=== PATIENT | female | born 1945 | race Hispanic/Latino ===

== ENCOUNTER 2018-09-26 23:07 | Emergency (ER) | payer OTHER, MEDICARE ==
[~2018-09-26 23:07] MED LIST: BUDE10.2 IH; HYDR-2132 PO; ROSU10TA22 PO
[2018-09-26] MEDS ORDERED: DiphenhydrAMINE HCL 50 MG/ML VIAL ONE (23:36)
[2018-09-26] MEDS ORDERED: FAMOTIDINE/PF 20 MG/2 ML VIAL IV ONE (23:36)
[2018-09-26] MEDS ORDERED: DIPHENHYDRAMINE HCL 25 MG CAPSULE ONE (23:36)
[2018-09-26] MEDS ORDERED: METHYLPREDNISOLONE SOD SUCC 125MG/2ML VIAL ONE (23:36)
[2018-09-26] MEDS ORDERED: ALBUTEROL SULFATE 0.083% 2.5 MG/3 ML INH IH ONE (23:44)
[2018-09-27] MEDS ORDERED: PREDNISONE 20 MG TABLET ONE (00:24)
== END 2018-09-27 00:32 | disposition home or self-care (01) ==
LOC: EDH 23:07
DX: T78.40XA Allergy, unspecified, initial encounter (principal); L50.9 Urticaria, unspecified; E78.00 Pure hypercholesterolemia, unspecified; X58.XXXA Exposure to other specified factors, initial encounter
CPT/HCPCS: 94640; 96374; 96375; 99284; J1200; J2930; J3490; Q0163

== ENCOUNTER 2018-09-27 11:15 | Observation (INO) | payer OTHER, MEDICARE ==
[~2018-09-27] VITALS: Ht 160 cm; Wt 63.0 kg
[2018-09-27] MEDS ORDERED: FAMOTIDINE/PF 20 MG/2 ML VIAL IV ONE ×2 (11:47→16:33)
[2018-09-27 11:51] LABS: BASOPHILS % (AUTO) 0.1 % (0.0-5.0); HEMATOCRIT 37.9 % (36-48); LYMPHOCYTES % (AUTO) 7.5 % (21.0-51.0); MEAN CORPUSCULAR HEMOGLOBIN 30.3 pg (27.0-33.0); MEAN CORPUSCULAR HGB CONC 33.9 g/dL (32.0-36.0); MEAN CORPUSCULAR VOLUME 89.5 fL (79-99); MONOCYTES % (AUTO) 0.7 % (3.0-13.0); NEUTROPHILS % (AUTO) 91.7 % (40.0-77.0); PLATELET COUNT (AUTO) 209 K/uL (130-400); RED BLOOD CELL COUNT(AUTO) 4.24 MIL/uL (4.00-5.50); RED CELL DISTRIBUTION WIDTH 13.9 % (11.0-15.5); WHITE BLOOD COUNT (AUTO) 6.8 K/uL (4.8-10.8)
[2018-09-27 12:04] LABS: CREATININE 0.7 mg/dL (0.5-1.5); POTASSIUM 3.6 mmol/L (3.5-5.1)
[2018-09-27 12:05] LABS: INR 0.93 (0.85-1.15); PARTIAL THROMBOPLASTIN TIME 27.1 SEC (26.3-35.5); PROTHROMBIN TIME 9.8 SEC (9.6-11.6)
[2018-09-27 12:13] LABS: ALBUMIN 3.8 g/dL (3.5-5.0); BILIRUBIN,TOTAL 0.4 mg/dL (0.2-1.0); TOTAL PROTEIN, SERUM 7.2 g/dL (6.0-8.3)
[2018-09-27 12:38] LABS: B-TYPE NATRIURETIC PEPTIDE 42 pg/mL (0-100)
[2018-09-27 14:04] LABS: APPEARANCE,URINE Clear (CLEAR); BILIRUBIN,URINE Negative (NEGATIVE); COLOR,URINE Yellow (YELLOW); GLUCOSE, URINE (UA) Negative (NEGATIVE); KETONES,URINE Negative (NEGATIVE); LEUKOCYTE ESTERASE ,URINE Negative (NEGATIVE); NITRATE,URINE Negative (NEGATIVE); OCCULT BLOOD,URINE Negative (NEGATIVE); PROTEIN,URINE Negative (NEGATIVE); UROBILINOGEN,URINE 0.2 mg/dL (0.2-1.0)
[2018-09-27] MEDS ORDERED: NITROGLYCERIN 0.4 MG SL TAB SL ONE (16:25)
[2018-09-27] MEDS ORDERED: LIDOCAINE HCL 2% VISCOUS 15 ML UDCUP ONE (16:33)
[2018-09-27] MEDS ORDERED: MAGNESIUM HYDROXIDE 30 ML/UDCUP ONE (16:34)
[2018-09-27] MEDS ORDERED: ENOXAPARIN SODIUM 60 MG/0.6 ML SQ ONE (16:44)
[2018-09-27] MEDS: METOPROLOL TARTRATE 25 MG TAB PO SCH ×2 (17:00→21:45)
[2018-09-27] MEDS ORDERED: METHYLPREDNISOLONE SOD SUCC 125MG/2ML VIAL ONE (17:13)
[2018-09-27] MEDS ORDERED: NITROGLYCERIN 1GM/1 INCH PACKET TD ONE (17:13)
[2018-09-27] MEDS ORDERED: METOPROLOL TARTRATE 25 MG TAB ONE (17:17)
[2018-09-27] MEDS ORDERED: IPRATROPIUM/ALBUTEROL SULFATE 3 ML SOLUTION IH ONE (17:22)
[2018-09-27] MEDS ORDERED: NITROGLYCERIN 0.4 MG SL TAB SL PRN (19:45)
[2018-09-27] MEDS ORDERED: ONDANSETRON HCL 4 MG/2 ML VIAL IVP PRN (19:45)
[2018-09-27] MEDS ORDERED: ACETAMINOPHEN 325 MG TAB PO PRN (19:45)
[2018-09-27] MEDS ORDERED: MORPHINE SULFATE 2 MG/ML 1ML SYG IVP PRN (19:45)
[2018-09-27 20:12] LABS: CREATINE KINASE, TOTAL 67 U/L (21-232); MYOGLOBIN 30 ng/mL (10-92); TROPONIN I < 0.04 ng/mL (0.00-0.06)
[2018-09-27 20:18] VITALS: BP 126/70
[2018-09-27 22:27] LABS: CREATINE KINASE, TOTAL 63 U/L (21-232); MYOGLOBIN 35 ng/mL (10-92); TROPONIN I < 0.04 ng/mL (0.00-0.06)
[2018-09-27] MEDS ORDERED: DIPHENHYDRAMINE HCL 25 MG CAPSULE PO PRN ×2 (22:30)
[2018-09-27] MEDS ORDERED: DIPHENHYDRAMINE HCL 25 MG CAPSULE ONE (22:33)
[2018-09-27 23:52] VITALS: BP 117/51
[2018-09-28 01:41] LABS: CREATINE KINASE, TOTAL 60 U/L (21-232); MYOGLOBIN 42 ng/mL (10-92); TROPONIN I < 0.04 ng/mL (0.00-0.06)
[2018-09-28 04:05] VITALS: BP 112/53
--- NOTE | 2018-09-28 05:20 | NUR ---
PROGRESS NOTE PT C/O ITCH WITH HIVES, SKIN FLUSHED AND RED, CNC MANUFACTURING ENGINEER STELLA CONTACTED, ORDER FOR BENADRYL 50MG PO STAT AND 25MG PO PRN Q6H FOR ITCHING, PT GIVEN THE STAT 50MG PO BENADRYL, ITCHING CALM, PT ABLE TO SLEEP THROUGHOUT THE NIGHT, PT CALL AT 0515 AND STATED ITCHING, UPON ASSESSMENT, PT NOTED WITH HIVES, SKIN FLUSHED AND RED FROM THE TRUNK OF UPPER BODY TO B/L THIGH, NO SOB, SWOLLEN TONGUE NOTED, OR ACUTE DISTRESS NOTED, PT ON O2 2L, CNC MANUFACTURING ENGINEER SEISMOGRAPH OBSERVER CALLED AND NOTIFIED FOR FURTHER ORDERS, CNC MANUFACTURING ENGINEER STATED PT WAS ALREADY GIVEN 125MG OF SOLU-MEDROL AND SHOULD GO AHEAD TO INCREASE THE 25MG PRN Q6H TO 50MG PO PRN Q6H FOR ITCHING. ORDER CARRIED OUT. NURSING WILL CONTINUE TO MONITOR PT.
[2018-09-28 06:33] LABS: HEMATOCRIT 37.4 % (36-48); MEAN CORPUSCULAR HEMOGLOBIN 29.7 pg (27.0-33.0); MEAN CORPUSCULAR HGB CONC 33.2 g/dL (32.0-36.0); MEAN CORPUSCULAR VOLUME 89.4 fL (79-99); PLATELET COUNT (AUTO) 217 K/uL (130-400); RED BLOOD CELL COUNT(AUTO) 4.18 MIL/uL (4.00-5.50); RED CELL DISTRIBUTION WIDTH 14.2 % (11.0-15.5); WHITE BLOOD COUNT (AUTO) 12.9 K/uL (4.8-10.8)
[2018-09-28 06:42] LABS: CREATININE 0.6 mg/dL (0.5-1.5); POTASSIUM 3.8 mmol/L (3.5-5.1)
[2018-09-28 07:30] VITALS: BP 127/73
[2018-09-28] MEDS: METOPROLOL TARTRATE 25 MG TAB PO SCH ×2 (09:37→21:19)
[2018-09-28] MEDS: ASPIRIN 325 MG TABLET PO SCH (09:37)
[2018-09-28] MEDS ORDERED: DIPHENHYDRAMINE HCL 25 MG CAPSULE PO PRN (10:30)
--- NOTE | 2018-09-28 10:41 | NUR ---
PARAG Rosen met with pt and daughter Dayana Prieto [phone]. Pt states she is to [place] [phone] but he lives in [place] and visits often. Pt states she is independent of AL[facility], but has provider 2hrs a day thru [facility] for home management. Pt has no DME or in home care services. PCP is Hernán Armstrong and uses [facility]. DEnies dc needs, plan is home. CM to follow and assist as needed Addendum: 09/28/18 at 1049 by GABRIEL MEDRANO Amended: Links added.
[2018-09-28 11:00] VITALS: BP 127/71
[2018-09-28] MEDS ORDERED: METHYLPREDNISOLONE SOD SUCC 125MG/2ML VIAL IVP SCH (14:00)
[2018-09-28] MEDS: FAMOTIDINE/PF 20 MG/2 ML VIAL IV SCH (14:21)
[2018-09-28 16:00] VITALS: BP 114/66
[2018-09-28] MEDS: METHYLPREDNISOLONE SOD SUCC 40MG/ML 1ML IVP SCH (17:11)
[2018-09-28 19:00] VITALS: BP 126/68
[2018-09-28] MEDS: FAMOTIDINE 20MG TAB 20 MG TAB PO SCH (21:19)
[2018-09-29] VITALS: BP 90/42
[2018-09-29] MEDS: METHYLPREDNISOLONE SOD SUCC 40MG/ML 1ML IVP SCH ×2 (01:46→08:29)
[2018-09-29] MEDS ORDERED: SODIUM CHLORIDE 0.9% 1000ML 1,000 ML IV SCH (03:00)
[2018-09-29 04:00] VITALS: BP 124/68
[2018-09-29] MEDS ORDERED: GLUCAGON 1MG KIT 1 MG ML IM PRN (04:00)
[2018-09-29] MEDS ORDERED: DEXTROSE 50%-WATER 50 ML DISP.SYRIN IV PRN (04:00)
[2018-09-29] MEDS ORDERED: BUDESONIDE 0.5 MG/2 ML INH IH SCH (06:00)
[2018-09-29] MEDS: IPRATROPIUM/ALBUTEROL SULFATE 3 ML SOLUTION IH SCH ×2 (06:24→11:15)
[2018-09-29] MEDS: INSULIN HUMULIN R 100 UNIT/ML 3ML SQ SCH ×2 (06:28→11:30)
[2018-09-29 07:00] VITALS: BP 146/73
[2018-09-29] MEDS: ASPIRIN 325 MG TABLET PO SCH (08:30)
[2018-09-29] MEDS: METOPROLOL TARTRATE 25 MG TAB PO SCH (08:30)
[2018-09-29] MEDS: FAMOTIDINE 20MG TAB 20 MG TAB PO SCH (08:30)
[2018-09-29 11:00] VITALS: BP 122/64
[2018-09-29] MEDS: FAMOTIDINE/PF 20 MG/2 ML VIAL IV SCH (13:00)
[2018-09-29 16:00] VITALS: BP 120/66
--- NOTE | 2018-09-29 18:20 | NUR ---
DISCHARGE PATIENT GIVEN DISCHARGE INSTRUCTIONS VIA TEACH BACK. 20G PIV TO LEFT HAND DISCONTINUED, TIP INTACT. RX GIVEN BY DR. SUTTON FOR PREDNISONE, BENADRYL AND PEPCID. PATIENT TO FOLLOW UP WITH PCP, DR. GUERITA ARTEAGA AND DR. HIRSCH. PATIENT STABLE AT THIS TIME. PATIENT WHEELED DOWNSTAIRS ACCOMPANIED BY BARBRA GASTELUM AND PATIENT'S DAUGHTER.
== END 2018-09-29 18:25 | disposition home or self-care (01) ==
LOC: EDH 11:15 → EDHIP 17:16 → 3AH 20:21
PROVIDERS: ADMIT Internal Medicine; ATTEND Internal Medicine
DX: R07.89 Other chest pain (principal); E78.5 Hyperlipidemia, unspecified; J45.909 Unspecified asthma, uncomplicated; L50.9 Urticaria, unspecified; Z79.51 Long term (current) use of inhaled steroids; Z87.891 Personal history of nicotine dependence; Z79.899 Other long term (current) drug therapy
CPT/HCPCS: 36415 ×2; 71045 ×2; 80048; 80053; 81003; 82550 ×4; 82948; 83874 ×4; 83880; 84484 ×4; 85025; 85027; 85610; 85730; 93005 ×2; 94640 ×4; 94664; 96374; 96375; 96376 ×2; 99291; G0378 ×48; J1650; J2920 ×3; J2930 ×2; J3490 ×2; Q0163 ×3

== ENCOUNTER → 2018-11-17 | Outpatient (CLI) | payer OTHER, MEDICARE ==
[~2018-11-17] VITALS: Ht 162.6 cm; Wt 62.1 kg
[~2018-11-17] MED LIST changes: -HYDR-2132 PO; +REGADENOSON 0.4 MG/5 ML PF SYG IVP SCH
== END | disposition home or self-care (01) ==
LOC: SHCH 08:33
PROVIDERS: ATTEND Internal Medicine Cardiovascular Disease
DX: R07.9 Chest pain, unspecified (principal); R06.00 Dyspnea, unspecified
CPT/HCPCS: 78452; 93017; 96374; A9500 ×2; J2785

== ENCOUNTER 2019-03-30 05:59 | Day surgery (SDC) | payer OTHER, MEDICARE ==
[~2019-03-30] VITALS: Ht 162.6 cm; Wt 59.9 kg
[~2019-03-30 05:59] MED LIST changes: -REGADENOSON 0.4 MG/5 ML PF SYG IVP SCH
[2019-03-30] MEDS ORDERED: SODIUM CHLORIDE 0.9% 1000ML 1,000 ML IV ONE (06:24)
[2019-03-30 06:35] VITALS: BP 163/76
[2019-03-30] MEDS ORDERED: IPRATROPIUM/ALBUTEROL SULFATE 3 ML SOLUTION IH ONE (06:43)
[2019-03-30] MEDS ORDERED: ELLIPTA IH (06:49)
[2019-03-30] MEDS ORDERED: THEO400T3 PO (06:49)
[2019-03-30] MEDS ORDERED: ALBUTEROL (06:49)
[2019-03-30] MEDS ORDERED: PROPOFOL 10 MG/ML 20ML VIAL IV ONE (07:00)
[2019-03-30] MEDS ORDERED: LIDOCAINE HCL-MPF 2% 5ML VIAL ONE (07:01)
[2019-03-30 07:35] VITALS: BP 110/58
[2019-03-30 07:40] VITALS: BP 124/62
[2019-03-30 07:45] VITALS: BP 128/66
[2019-03-30 07:50] VITALS: BP 132/66
--- NOTE | 2019-03-30 08:00 | NUR ---
dc ptdc home via wc,no distress noted. pt denied any pain or discomforts. pt accompanied by daughter.
== END 2019-03-30 08:00 | disposition home or self-care (01) ==
LOC: ENDO 05:59 → DAH 05:59 → ENDO 08:00
PROVIDERS: ATTEND Internal Medicine
DX: Z09 Encounter for follow-up examination after completed treatment for conditions other than malignant neoplasm (principal); D12.3 Benign neoplasm of transverse colon; K57.30 Diverticulosis of large intestine without perforation or abscess without bleeding; Z86.010 Personal history of colon polyps; J43.9 Emphysema, unspecified; E78.5 Hyperlipidemia, unspecified; Z79.899 Other long term (current) drug therapy; Z98.890 Other specified postprocedural states; Z81.0 Family history of intellectual disabilities
CPT/HCPCS: 45380; 88305; 94640; A4215; A4221; A4222; A4223; A4606; A4620; A4663; J2704; J3490; J7030

== ENCOUNTER 2023-05-22 20:53 | Emergency (ER) | payer OTHER, MEDICARE ==
[~2023-05-22] VITALS: Ht 162.6 cm; Wt 59.4 kg
[~2023-05-22 20:53] MED LIST changes: +ALBU8.5H8 IH; +ALBUTEROL; -BUDE10.2 IH; +ELLIPTA IH; +LISI10TA24 PO; +MECL-160 PO; +NAPR-1192 PO; +THEO400T3 PO
[2023-05-22 22:41] VITALS: BP 153/83; PULSE 87; RESP 19; O2SAT 100
== END 2023-05-22 23:05 | disposition home or self-care (01) ==
LOC: EDH 20:53
DX: S00.81XA Abrasion of other part of head, initial encounter (principal); S80.211A Abrasion, right knee, initial encounter; S80.212A Abrasion, left knee, initial encounter; S60.511A Abrasion of right hand, initial encounter; S60.512A Abrasion of left hand, initial encounter; E78.00 Pure hypercholesterolemia, unspecified; J44.9 Chronic obstructive pulmonary disease, unspecified; Z79.899 Other long term (current) drug therapy; Z98.890 Other specified postprocedural states; Z88.8 Allergy status to other drugs, medicaments and biological substances; W18.39XA Other fall on same level, initial encounter; Y93.89 Activity, other specified; Y92.89 Other specified places as the place of occurrence of the external cause; Y99.8 Other external cause status
CPT/HCPCS: 70450; 72125

== ENCOUNTER 2024-01-27 21:35 | Emergency (ER) | payer OTHER, MEDICARE ==
[~2024-01-27] VITALS: Ht 162.6 cm; Wt 59.0 kg
[~2024-01-27 21:35] MED LIST changes: +ALEN70TA80 PO; +BENZ-226 PO; +FAMO20TA8 PO; +FLUT1BLS3 IH; +LEVO750T68 PO; -MECL-160 PO; +MECL-302 PO; +MULT-1203 PO; +PRED20TA3 PO
--- NOTE | 2024-01-27 22:02 | ERN ---
ED Note History of Present Illness Stated Complaint: PELVIC PAIN X 2 HOURS Chief Complaint: Pelvic Pain Time Seen by MD: 21:36 Dictation: This is a 78-year-old elderly female who came into the emergency room with complaints of severe epigastric pain and pain in the mons pubis and vulval area. This started 2 hours ago and it was intense and hence she came into the ER. Denied any burning micturition frequency or blood in the urine. No history of any nausea vomitings diarrhea she seemed to uncomfortable even during my evaluation Temperature 98.4 pulse 89 respirations 19 blood pressure 182/84 pulse oximetry 96% on room air Her chronic medical problems include COPD asthma hypertension Allergies: Coded Allergies: No Known Allergies (Unverified Allergy, Unknown, 06/13/23) Home Meds Active Scripts Oxycodone HCl/Acetaminophen (Percocet 5-325 mg Tablet) 5 Mg-325 Mg Tablet, 1 E ACH PO Q6H for pain, #10 TAB 0 Refills Prov:JACE CHIU MD 01/28/24 Levofloxacin (Levaquin 750Mg Tabs) 750 Mg Tablet, 750 MG PO DAILY, #5 TAB 0 Refills Prov:GILA SEVILLA [facility] 06/16/23 Prednisone (Prednisone) 20 Mg Tablet, 40 MG PO DAILY, #3 TAB 0 Refills Prov:GILA SEVILLA CLINICAL TRAINING SPECIALIST 06/16/23 Famotidine (Famotidine) 20 Mg Tablet, 20 MG PO DAILY, #30 TAB Prov:GILA SEVILLA CLINICAL TRAINING SPECIALIST 06/16/23 Benzonatate (Benzonatate) 100 Mg Capsule, 200 MG PO BID, #30 CAP Prov:GILA SEVILLA [facility] 06/16/23 Reported Medications Multivitamin (Multi Vitamin Daily) 1 Each Tablet, 1 EACH PO DAILY, TAB 06/13/23 Alendronate Sodium (Alendronate Sodium) 70 Mg Tablet, 70 MG PO QWEEK, TAB 06/13/23 Fluticasone/Umeclidin/Vilanter (Trelegy Ellipta 100-62.5-25) 100-62.5 Blst.w.dev, 1 EACH IH DAILY 06/13/23 Lisinopril (Lisinopril) 10 Mg Tablet, 10 MG PO DAILY, TAB 11/20/21 Meclizine HCl (Meclizine HCl) 25 Mg Tablet, 25 MG PO TIDP PRN for NAUSEA/VOMITING, TAB 11/20/21 Naproxen (Naproxen) 375 Mg Tablet, 375 MG PO BIDMEALS PRN for PAIN LEVEL 1 TO 3, TAB 11/20/21 Albuterol Sulfate (Proair Hfa) 8.5 Gm Hfa.aer.ad, 8.5 GM IH Q4HPRN PRN for SHORTNESS OF BREATH 11/20/21 [Albuterol] No Conflict Check 03/30/19 Theophylline Anhydrous (Theophylline) 400 Mg Tablet.er, 400 MG PO HS, TAB 03/30/19 [Ellipta] No Conflict Check, 100 MCG IH DAILY 03/30/19 Rosuvastatin Calcium (Crestor) 10 Mg Tablet, 10 MG PO HS, TAB 01/07/16 Past Medical History Past Medical History: Asthma, COPD, High Cholesterol, Hypertension, Other Additional Past Medical Hx: HX OF OSTEOPOROSIS Surgical History: Other Surgical History Other: HIP SX Family History: Negative Social History: Negative History: Not Applicable RN Note Reviewed/Agreed w/PFSH: Yes Review of System Dictation Detailed ROS negative except the Supra pubic pain Initial Vital Sign VS Vital Signs Date Time Temp Pulse Resp B/P (MAP) Pulse Ox O2 Delivery O2 Flow Rate FiO2 01/27/24 21:36 98.4 89 19 182/84 96 Room Air* 0 21 Physical Exam Dictation General: awake, alert, NAD Head/Face: Normocephalic, atraumatic Eyes: PERRL, EOMI, vision at baseline ENT: oral cavity clear, TMs clear, no signs of infection Neck: Trachea midline, supple, no nuchal rigidity Cardiovascular: RRR, normal S1/S2, No MRGs, no JVD Respiratory: CTAB, no respiratory distress, No rales or wheezes Abdomen: Soft, non-tender, non-distended, normal bowel sounds, no guarding or rebound. Skin: Warm, dry, normal turgor, no rash MS/Extremity: Pulses equal, no cyanosis, neurovascular intact, FROM Neuro: COAx4, GCS 15, strength 5/5, CN 2-12 intact, normal cerebellar exam, normal gait, Psych: Normal behavior, mood, and affect normal Extremities-trace edema without any palpable cords, Homans sign is negative Results (Laboratory/Radiology) Laboratory/Radiology Laboratory Tests Test 01/27/24 22:10 01/27/24 22:22 White Blood Count 7.2 K/uL (4.8-10.8) Red Blood Count 3.75 MIL/uL (4.00-5.50) L Hemoglobin 11.4 g/dL (12.0-16.0) L Hematocrit 34.9 % (36-48) L Mean Corpuscular Volume 93.1 fL (79-99) Mean Corpuscular Hemoglobin 30.4 pg (27.0-33.0) Mean Corpuscular Hemoglobin Concent 32.7 g/dL (32.0-36.0) Red Cell Distribution Width 13.1 % (11.0-15.5) Platelet Count 222 K/uL (130-400) Mean Platelet Volume 9.8 fL (7.5-10.5) Immature Granulocyte % (Auto) 0.4 % (0-1) Neutrophils (%) (Auto) 68.9 % (40.0-77.0) Lymphocytes (%) (Auto) 20.7 % (21.0-51.0) L Monocytes (%) (Auto) 8.9 % (3.0-13.0) Eosinophils (%) (Auto) 0.7 % (0.0-8.0) Basophils (%) (Auto) 0.4 % (0.0-5.0) Neutrophils # (Auto) 5.0 K/uL (1.8-7.7) Lymphocytes # (Auto) 1.5 K/uL (1.0-4.8) Monocytes # (Auto) 0.6 K/uL (0.1-1.0) Eosinophils # (Auto) 0.05 K/uL (0.00-0.70) Basophils # (Auto) 0.03 K/uL (0.00-0.20) Absolute Immature Granulocyte (auto 0.03 K/uL (0-1) Nucleated Red Blood Cells 0.0 % (0.0-0.19) Sodium Level 147 mmol/L (136-145) H Potassium Level 3.3 mmol/L (3.5-5.1) L Chloride Level 108 mmol/L (101-111) Carbon Dioxide Level 32 mmol/L (21-32) Blood Urea Nitrogen 13 mg/dL (7-18) Creatinine 0.6 mg/dL (0.5-1.0) Glomerular Filtration Rate Calc 91 mL/min (>90) Random Glucose 98 mg/dL (70-105) Total Calcium 8.9 mg/dL (8.5-10.1) Urine Color LIGHT-YELLOW (YELLOW) Urine Appearance CLEAR (CLEAR) Urine pH 7.0 (5.0-8.0) Urine Specific Mora 1.014 (1.001-1.031) Urine Protein NEGATIVE mg/dL (NEGATIVE) Urine Glucose (UA) NEGATIVE mg/dL (NEGATIVE) Urine Ketones NEGATIVE mg/dL (NEGATIVE) Urine Occult Blood NEGATIVE (NEGATIVE) Urine Nitrate NEGATIVE (NEGATIVE) Urine Bilirubin NEGATIVE mg/dL (NEGATIVE) Urine Urobilinogen 0.2 mg/dL (0.2-1.0) Urine Leukocyte Esterase NEGATIVE Solange/uL Labs Reviewed?: Yes CT Scan Comment: PATIENT: APARNA GARCIA MR#: [id number] : 1945 SEX: F AGE: 78 LOCATION: [facility] ORDER 35 STATUS: [facility] REPORT#: [id number] SERVICE 32 REASON: lower abdominal and pelvic pain ORDERING PHYSICIAN: JACE CHIU MD PROCEDURE: ABD PELWWO - CT ABDOMEN/PELVIS W/WO CONTRAS CT ABDOMEN/PELVIS W/WO CONTRAS HISTORY: Pain COMPARISON: None TECHNIQUE: Multiple sequential axial images of the abdomen and pelvis were obtained from the dome of the diaphragm through symphysis pubis. Patient was given 75 cc of Omnipaque through intravenous route. Oral contrast was not given. FINDINGS: No pleural effusion is seen bilaterally. There is no evidence of parenchymal disease or pulmonary nodule of the visualized lower lungs. Degenerative changes of the thoracolumbar spine are present. The heart is not enlarged. Gallbladder is distended. Liver measured 13 cm. The liver, spleen, adrenal glands and pancreas are unremarkable. There is mild right hydronephrosis and right hydroureter may be related to recently passed stone versus stone versus pyelonephritis. Clinical correlation is recommended. No hydronephrosis is seen on the left. Postop changes are seen of the lumbosacral spine with artifacts limiting evaluation. No evidence of renal stone is seen. Fecal material is seen in the colon. There are normal size retroperitoneal and mesenteric lymph nodes. No ascites is seen. Atherosclerotic changes are present. Uterus is enlarged may be related to fibroid uterus. There are bilateral inguinal hernias with fat content there is diverticulosis. Pelvic sidewalls are symmetric bilaterally. Bladder is well distended without wall thickening. IMPRESSION: 1. There is mild right hydronephrosis and right hydroureter may be related to recently passed stone versus stone versus pyelonephritis. Clinical correlation is recommended. CT was performed with one or more following dose reduction techniques: automated exposure control, adjustment of the mA and kv according to patient's size, or use of a iterative reconstruction technique. DICTATED BY: LEXX PEACE MD DATE: 01/28/2424 ELECTRONICALLY SIGNED BY: LEXX PEACE MD DATE: 01/28/2428 ED Course ED Course Orders Procedure Category Date Status Time Urinalysis Profile LAB 01/27/24 Complete 21:48 Cbc With Differential LAB 01/27/24 Complete 21:48 Basic Metabolic Panel LAB 01/27/24 Complete 21:48 Morphine 2mg Syg PHA 01/27/24 Complete (Morphine 2mg Syg) 22:30 Ct Abdomen/Pelvis CT 01/27/24 Resulted W/Wo Contras 23:33 Iohexol (Omnipaque) PHA 01/27/24 Complete 23:46 Current Medications Medications (Trade) Dose Ordered Sig/Sarah Route PRN Reason Start Time Stop Time Status Last Admin Dose Admin Iohexol (Omnipaque) 75 ml STK-MED ONCE IV 01/27/24 23:46 01/27/24 23:46 DC Morphine Sulfate (morPHINE 2MG SYG) 2 mg ONCE ONCE IVP 01/27/24 22:30 01/27/24 22:31 DC 01/27/24 22:41 Vital Signs Date Time Temp Pulse Resp B/P (MAP) Pulse Ox O2 Delivery O2 Flow Rate FiO2 01/28/24 01:04 98.4 62 17 161/81 96 Room Air* 0 01/28/24 00:32 76 17 181/73 96 Room Air* 0 01/27/24 23:52 67 18 160/74 97 Room Air* 0 01/27/24 21:36 98.4 89 19 182/84 96 Room Air 0 11/15/24 21:36 98.4 89 19 182/84 96 Room Air* 0 21 We will perform diagnostic labs, advanced imaging and administer medications according to the patient's complaint. Once the results are available, will review and personally interpreted the labs to rule out any acute life- threatening emergency the trach require immediate intervention and treatment. I will then re-evaluate the patient after treatment and diagnostic exams have return to determine whether the patient requires any further testing, can safely be discharged home or need further admission to hospital for additional treatment and evaluation. I have reviewed labs CBC BNP 7 are within normal limits urinalysis is totally negative . Because of the excruciating pain she had when she came in I requested a CT scan of the abdomen and pelvis. 12:[address] scan of the abdomen and pelvis reported as mild hydronephrosis on the right side and suggestion of possibly passing a stone. Patient is feeling significantly improved and there is no evidence of any UTI we will discharge her to home Medical Decision Making MDM MDM: Differential diagnosis: Cystitis, arthritis of the pelvic bones, referred pain from her hips, rectal abnormality constipation, renal colic Rationale: Tests considered and ordered secondary to shared decision making include: Previous outside records reviewed: Old ER visits. Risk of complication and/or morbidity or mortality of patient management: None Medications-Per medication reconciliation Need for hospitalization: Patient does not meet criteria for hospitalization. Need for emergency major/minor surgery: No There are no social concerns with this patient. Prescription drug management Prescriptions will include symptomatic care Patient's prior external medical records from other ER visits were reviewed by me as indicated. Prior testing and results from previous visits were reviewed. Prior tests were taken into account with medical decision making and resource utilization, independent historian/historians were used to obtain complete medical history. I independently interpreted the test that were performed, results were reviewed by me and considered findings on radiology if ordered. Medical management and examination interpretation discussions were had by me with other qualified healthcare professionals as indicated for the patient's care. Problem List Problem List: (1) Renal colic (2) Nephrolithiasis (3) Lower abdominal pain DX & DISP Disposition: Discharge Departure Impression: Primary Impression: Lower abdominal pain Additional Impressions: Nephrolithiasis, Renal colic Condition: Stable Scripts Oxycodone HCl/Acetaminophen (Percocet 5-325 mg Tablet) 5 Mg-325 Mg Tablet 1 EACH PO Q6H for pain, #10 TAB 0 Refills Prov: JACE CHIU MD 01/28/24 Additional Instructions: Patient and the caregiver have been informed of all the diagnostic tests and the imaging conducted during the today's visit to the emergency room and has verbalized understanding of the results I have personally reviewed and interpreted all diagnostic exams performed here in the ER today as well as the vital signs documented by the nursing staff. The patient is now being discharged to home and should follow up with the primary care physician or the specialist as directed by the ER staff. Follow-up with primary care provider in 1 to 2 days. Take medications as directed here in the emergency room. Okay to continue home medications unless otherwise discussed during your visit in the emergency room today. Return to your nearest emergency room if symptoms worsen or if there is no improvement. Call [phone] if you need immediate assistance. Take Tylenol or Motrin [id number] as needed and if no contraindications are present. Increase oral hydration. A wound culture or urine culture was ordered here in the emergency room department please follow-up with primary care provider and advise them to get repeat ports from our facility. If you had any Raudel wrap/splints that were applied here, please do not remove them until you see your primary care or specialty. Referrals: LEANNE MEDINA MD (PCP) JACE CHUI MD Jan 27, 2024 22:02
[2024-01-27 22:20] LABS: BASOPHILS # (AUTO) 0.03 K/uL (0.00-0.20); BASOPHILS % (AUTO) 0.4 % (0.0-5.0); EOSINOPHILS # (AUTO) 0.05 K/uL (0.00-0.70); EOSINOPHILS % (AUTO) 0.7 % (0.0-8.0); HEMATOCRIT 34.9 % (36-48); IMMATURE GRANULOCYTE ABSOLUTE 0.03 K/uL (0-1); LYMPHOCYTES # (AUTO) 1.5 K/uL (1.0-4.8); LYMPHOCYTES % (AUTO) 20.7 % (21.0-51.0); MEAN CORPUSCULAR HEMOGLOBIN 30.4 pg (27.0-33.0); MEAN CORPUSCULAR HGB CONC 32.7 g/dL (32.0-36.0); MEAN CORPUSCULAR VOLUME 93.1 fL (79-99); MONOCYTES # (AUTO) 0.6 K/uL (0.1-1.0); MONOCYTES % (AUTO) 8.9 % (3.0-13.0); NEUTROPHILS % (AUTO) 68.9 % (40.0-77.0); PLATELET COUNT (AUTO) 222 K/uL (130-400); RED BLOOD CELL COUNT(AUTO) 3.75 MIL/uL (4.00-5.50); RED CELL DISTRIBUTION WIDTH 13.1 % (11.0-15.5); WHITE BLOOD COUNT (AUTO) 7.2 K/uL (4.8-10.8)
[2024-01-27 22:28] LABS: CREATININE 0.6 mg/dL (0.5-1.0); POTASSIUM 3.3 mmol/L (3.5-5.1)
[2024-01-27 22:36] LABS: APPEARANCE,URINE CLEAR (CLEAR); BILIRUBIN,URINE NEGATIVE (NEGATIVE); COLOR,URINE LIGHT-YELLOW (YELLOW); GLUCOSE, URINE (UA) NEGATIVE (NEGATIVE); KETONES,URINE NEGATIVE (NEGATIVE); LEUKOCYTE ESTERASE ,URINE NEGATIVE Leu/uL (NEGATIVE); NITRATE,URINE NEGATIVE (NEGATIVE); OCCULT BLOOD,URINE NEGATIVE (NEGATIVE); PROTEIN,URINE NEGATIVE (NEGATIVE); UROBILINOGEN,URINE 0.2 mg/dL (0.2-1.0)
[2024-01-27] MEDS: morPHINE 2 MG SYG IVP ONE (22:41)
[2024-01-27 23:10] LABS: ADD UA MICROSCOPIC NO
[2024-01-27] MEDS ORDERED: IOHEXOL-350 75 ML VIAL IV ONE (23:46)
--- NOTE | 2024-01-28 00:29 | HMCIMG ---
CT ABDOMEN/PELVIS W/WO CONTRAS HISTORY: Pain COMPARISON: None TECHNIQUE: Multiple sequential axial images of the abdomen and pelvis were obtained from the dome of the diaphragm through symphysis pubis. Patient was given 75 cc of Omnipaque through intravenous route. Oral contrast was not given. FINDINGS: No pleural effusion is seen bilaterally. There is no evidence of parenchymal disease or pulmonary nodule of the visualized lower lungs. Degenerative changes of the thoracolumbar spine are present. The heart is not enlarged. Gallbladder is distended. Liver measured 13 cm. The liver, spleen, adrenal glands and pancreas are unremarkable. There is mild right hydronephrosis and right hydroureter may be related to recently passed stone versus stone versus pyelonephritis. Clinical correlation is recommended. No hydronephrosis is seen on the left. Postop changes are seen of the lumbosacral spine with artifacts limiting evaluation. No evidence of renal stone is seen. Fecal material is seen in the colon. There are normal size retroperitoneal and mesenteric lymph nodes. No ascites is seen. Atherosclerotic changes are present. Uterus is enlarged may be related to fibroid uterus. There are bilateral inguinal hernias with fat content there is diverticulosis. Pelvic sidewalls are symmetric bilaterally. Bladder is well distended without wall thickening. IMPRESSION: 1. There is mild right hydronephrosis and right hydroureter may be related to recently passed stone versus stone versus pyelonephritis. Clinical correlation is recommended. CT was performed with one or more following dose reduction techniques: automated exposure control, adjustment of the mA and kv according to patient's size, or use of a iterative reconstruction technique.
[2024-01-28] MEDS ORDERED: OXYC-38 PO (00:55)
[2024-01-28 01:04] VITALS: BP 161/81; PULSE 62; RESP 17; TEMP 98.4; O2SAT 96
== END 2024-01-28 01:10 | disposition home or self-care (01) ==
LOC: EDH 21:35
DX: N20.0 Calculus of kidney (principal); E78.00 Pure hypercholesterolemia, unspecified; I10 Essential (primary) hypertension; J44.89 Other specified chronic obstructive pulmonary disease; Z79.52 Long term (current) use of systemic steroids; Z79.899 Other long term (current) drug therapy; Z98.890 Other specified postprocedural states
CPT/HCPCS: 99285; 74178; 96374; 80048; 85025; 81003; 36415; J2270; Q9967

== ENCOUNTER 2024-08-02 08:52 | Observation (INO) | payer OTHER, MEDICARE ==
[~2024-08-02] VITALS: Ht 162.6 cm; Wt 59.2 kg
[2024-08-02] VITALS (10 sets, daily range): BP systolic 119–154; BP diastolic 49–74; PULSE 75–93; RESP 18–20; TEMP 97.4–97.9; O2SAT 94–99
[~2024-08-02 08:52] MED LIST changes: +OXYC-38 PO
--- NOTE | 2024-08-02 08:59 | ERN ---
General Chief Complaint: Hypertension Stated Complaint: HTN Time Seen by MD: 08:54 Source: patient History of Present Illness Initial Comments Patient is a 78-year-old female coming in to be evaluated for multiple complaints. Per patient she has a history of COPD hypertension and has been having a flare-up for one week. Patient was given steroid shots last Tuesday she states he felt a little bit better but throughout the week has been feeling worse. Today she is coming here from [facility] complaining of shortness of breath and elevated blood pressure. Patient does take medication for blood pressure has not had any changes in her medication. Allergies: Coded Allergies: No Known Allergies (Unverified Allergy, Unknown, 06/13/23) Home Meds Active Scripts Oxycodone HCl/Acetaminophen (Percocet 5-325 mg Tablet) 5 Mg-325 Mg Tablet, 1 EACH PO Q6H for pain, #10 TAB 0 Refills Prov:JACE CHIU MD 01/28/24 Levofloxacin (Levaquin 750Mg Tabs) 750 Mg Tablet, 750 MG PO DAILY, #5 TAB 0 Refills Prov:GILA SEVILLA [facility] 06/16/23 Prednisone (Prednisone) 20 Mg Tablet, 40 MG PO DAILY, #3 TAB 0 Refills Prov:GILA SEVILLA [employer]FACTURING [employer]PERATIONS MANAGER 06/16/23 Famotidine (Famotidine) 20 Mg Tablet, 20 MG PO DAILY, #30 TAB Prov:GILA SEVILLA MANUFACTURING OPERATIONS MANAGER 06/16/23 Benzonatate (Benzonatate) 100 Mg Capsule, 200 MG PO BID, #30 CAP Prov:GILA SEVILLA [facility] 06/16/23 Reported Medications Multivitamin (Multi Vitamin Daily) 1 Each Tablet, 1 EACH PO DAILY, TAB 06/13/23 Alendronate Sodium (Alendronate Sodium) 70 Mg Tablet, 70 MG PO QWEEK, TAB 06/13/23 Fluticasone/Umeclidin/Vilanter (Trelegy Ellipta 100-62.5-25) 100-62.5 Blst.w.dev, 1 EACH IH DAILY 06/13/23 Lisinopril (Lisinopril) 10 Mg Tablet, 10 MG PO DAILY, TAB 11/20/21 Meclizine HCl (Meclizine HCl) 25 Mg Tablet, 25 MG PO TIDP PRN for NAUSEA/VOMITING, TAB 11/20/21 Naproxen (Naproxen) 375 Mg Tablet, 375 MG PO BIDMEALS PRN for PAIN LEVEL 1 TO 3, TAB 11/20/21 Albuterol Sulfate (Proair Hfa) 8.5 Gm Hfa.aer.ad, 8.5 GM IH Q4HPRN PRN for SHORTNESS OF BREATH 11/20/21 [Albuterol] No Conflict Check 03/30/19 Theophylline Anhydrous (Theophylline) 400 Mg Tablet.er, 400 MG PO HS, TAB 03/30/19 [Ellipta] No Conflict Check, 100 MCG IH DAILY 03/30/19 Rosuvastatin Calcium (Crestor) 10 Mg Tablet, 10 MG PO HS, TAB 01/07/16 Past Medical History Past Medical History: Asthma, COPD, High Cholesterol, Hypertension, Other Medical History Other: HX OF OSTEOPOROSIS Past Surgical History: Other Surgical History Other: HIP SX Family History Family History: Negative Social History Social History: Negative Female( History) History: Not Applicable ROS Dictation CONSTITUTIONAL: No chills, no fever, no weakness, no diaphoresis, no malaise. HEAD/FACE: No signs of trauma. EENT: No eye pain, no blurred vision, no tearing, no double vision, no ear pain, no ear discharge, no nose pain, no nasal congestion, no throat pain, no throat swelling, no mouth pain. RESPIRATORY: No cough, no orthopnea, SOB, no stridor, wheezing. CARDIOVASCULAR: No chest pain, no edema, no palpitations, no syncope. GASTROINTESTINAL/ABDOMINAL: No abdominal pain, no constipation, no diarrhea, no nausea, no vomiting. GENITOURINARY: No abnormal discharge, no dysuria, no frequent urination, no hematuria. No complaints of pain in the genitals. MUSCULOSKELETAL: No back pain, no gout, no joint pain, no joint swelling, no muscle pain, no muscle stiffness, no neck pain. INTEGUMENTARY: No change in color, no change in hair/nails, no dryness, no lesion, no lumps, no rash. NEUROLOGICAL/PSYCH: No anxiety, not depressed, no emotional problem, no headache, no numbness, no pre-existing deficit, no history of seizures, no tremors, no weakness. HEMATOLOGIC/LYMPHATIC: Not anemic, no history of blood clots, no apparent ble eding, no bruising, glands not swollen. All Systems Negative, Except as Noted. Physical Exam Physical Exam Dictation VITAL SIGNS: Reviewed. GENERAL APPEARANCE: Alert, oriented x3, no acute distress, obese. HEAD AND FACE: Non-traumatic. EYES: PERRL, pink conjunctivas, eyelid no trauma, anterior chamber clear. EARS: Pinnas intact and no signs of trauma or erythema. Ear canals clear and no discharge. TMs no erythema. NOSE: No discharge, no bleeding. OROPHARYNX: Mouth normal, teeth no caries, tongue pink. Pharynx clear, no erythema. Tonsils no exudates, no abscesses noted. Mucous membrane moist. NECK: Supple, non-tender, no thyromegaly, no masses, no JVD, no bruits. BREAST: Deferred. CHEST: No tenderness, no crepitus, no paradoxical movement, no retractions. LUNGS: Clear, well-ventilated, symmetric, no rales, no wheezing, no rhonchi, no stridor, good breath sounds bilaterally. HEART: Regular rate, regular rhythm, no murmur, no gallops. VASCULAR: No peripheral edema. ABDOMEN: Soft, positive bowel sounds, nondistended, no guarding, nontender, no rebound, no masses no hepatomegaly, no splenomegaly, no Duvall's sign, no hernias. RECTAL: Deferred. GENITAL: Deferred. NEUROLOGICAL: Normal speech, gross motor function intact, gross sensory function intact. MUSCULOSKELETAL: Neck nontender, full range of motion, back nontender, full range of motion. EXTREMITIES: Nontender, full range of motion. SKIN: Color pink, dry, no turgor, no rash, no lacerations, no abrasions, no contusions. LYMPHATICS: Deferred. Results Laboratory and Microbiology Lab and Micro Result Laboratory Tests Test 08/02/24 09:14 08/02/24 09:34 White Blood Count 7.0 K/uL (4.8-10.8) Red Blood Count 4.51 MIL/uL (4.00-5.50) Hemoglobin 13.5 g/dL (12.0-16.0) Hematocrit 41.1 % (36-48) Mean Corpuscular Volume 91.1 fL (79-99) Mean Corpuscular Hemoglobin 29.9 pg (27.0-33.0) Mean Corpuscular Hemoglobin Concent 32.8 g/dL (32.0-36.0) Red Cell Distribution Width 13.2 % (11.0-15.5) Platelet Count 251 K/uL (130-400) Mean Platelet Volume 10.0 fL (7.5-10.5) Immature Granulocyte % (Auto) 0.3 % (0-1) Neutrophils (%) (Auto) 68.8 % (40.0-77.0) Lymphocytes (%) (Auto) 22.4 % (21.0-51.0) Monocytes (%) (Auto) 7.4 % (3.0-13.0) Eosinophils (%) (Auto) 0.7 % (0.0-8.0) Basophils (%) (Auto) 0.4 % (0.0-5.0) Neutrophils # (Auto) 4.8 K/uL (1.8-7.7) Lymphocytes # (Auto) 1.6 K/uL (1.0-4.8) Monocytes # (Auto) 0.5 K/uL (0.1-1.0) Eosinophils # (Auto) 0.05 K/uL (0.00-0.70) Basophils # (Auto) 0.03 K/uL (0.00-0.20) Absolute Immature Granulocyte (auto 0.02 K/uL (0-1) Nucleated Red Blood Cells 0.0 % (0.0-0.19) Sodium Level 143 mmol/L (136-145) Potassium Level 3.5 mmol/L (3.5-5.1) Chloride Level 105 mmol/L (101-111) Carbon Dioxide Level 30 mmol/L (21-32) Blood Urea Nitrogen 14 mg/dL (7-18) Creatinine 0.5 mg/dL (0.5-1.0) Glomerular Filtration Rate Calc 95 mL/min (>90) Random Glucose 89 mg/dL (70-105) Total Calcium 9.2 mg/dL (8.5-10.1) Magnesium Level 2.20 mg/dL (1.80-2.40) Total Creatine Kinase 90 U/L (21-232) # Troponin I High Sensitivity 9 ng/L (4-50) B-Type Natriuretic Peptide 91 pg/mL (0-100) Influenza Type A Antigen Negative For Type A Influenza Type B Antigen Negative For Type B SARS-CoV-2, RNA, NAAT NEGATIVE SARS CoV-2 Group A Streptococcus Rapid negative (NEGATIVE) Blood Gas Specimen Type Arterial Arterial Blood pH 7.415 (7.350-7.450) Arterial Blood Partial Pressure CO2 36 mmHg (32-45) Arterial Blood Partial Pressure O2 68.4 mmHg (83.0-108.0) L Arterial Blood HCO3 22.3 mmol/L (21.0-28.0) Arterial Blood Oxygen Saturation 94.1 % (94.0-98.0) Arterial Blood Base Excess -1.7 mmol/L (-2.0-3.0) Hemoglobin (Blood Gas) 13.3 g/dL (12.0-16.0) Sodium (Blood Gas) 143 MMOL/L (136-145) Bedside Potassium (Blood Gas) 3.9 MMOL/L (3.4-4.5) Bedside Chloride (Blood Gas) 104 MMOL/L (98-107) Bedside Glucose (Blood Gas) 87 MG/DL (65-95) Bedside Ionized Calcium (Blood Gas) 1.21 MMOL/L (1.15-1.33) Bedside Lactic Acid (Blood Gas) 0.83 MMOL/L (0.36-0.75) H Blood Gas Temperature 37.0 CELSIUS (35.5-37.0) Blood Gas Vent Mode ROOM AIR (ROOM AIR) FiO2 21.0 % Blood Gas Specimen Comment LR BASIL Labs Reviewed?: Yes EKG/XRAY/US/CT/MRI EKG Comment 08/02/2024 time 9:16 a.m. Ventricular rate 84 Sinus rhythm PA [address] wave elevation or depression X-RAY Comment [address] [id number] IMAGING REPORT Signed PATIENT: APARNA GARCIA MR#: [id number] : 1945 SEX: F AGE: 78 LOCATION: ED ORDER STATUS: REG ER REPORT#: [id number] SERVICE [id number] REASON: sob ORDERING PHYSICIAN: AMEE AGUILLON MD PROCEDURE: CXR1VW - CHEST 1VW CHEST 1VW HISTORY: Shortness of breath COMPARISON: None FINDINGS: A frontal projection of the chest was obtained. No acute pulmonary infiltrates is seen. The heart is normal in size. Prominent interstitial markings are seen. Degenerative changes are seen. No evidence of aortic calcification is seen. IMPRESSION: 1. No acute pulmonary infiltrate is seen. DICTATED BY: LEXX PEACE MD DATE: 08/02/241043 ELECTRONICALLY SIGNED BY: LEXX PEACE MD DATE: 08/02/241045 MDM MDM: Differential diagnosis: COPD exacerbation, shortness of breath, Rationale: Tests considered and ordered secondary to shared decision making include: labs, ECG and radiology Previous outside records reviewed: Old ER visits. Risk of complication and/or morbidity or mortality of patient management: None Medications-Per medication reconciliation Need for hospitalization: Patient does meet criteria for hospitalization. Need for emergency major/minor surgery: No There are no social concerns with this patient. Prescription drug management Prescriptions will include symptomatic care Patient's prior external medical records from other ER visits were reviewed by me as indicated. Prior testing and results from previous visits were reviewed. Prior tests were taken into account with medical decision making and resource utilization, independent historian/historians were used to obtain complete medical history. I independently interpreted the test that were performed, results were reviewed by me and considered findings on radiology if ordered. Medical management and examination interpretation discussions were had by me with other qualified healthcare professionals as indicated for the patient's care. Patient is a 78-year-old female coming in to be evaluated shortness of breath. Patient has a history of COPD has been using a breathing treatments at home but states they have not been working. Patient received the duo nebs and steroids symptoms improved mildly but patient will be admitted under the care of [facility] for ongoing management of COPD exacerbation. ED Course Orders Procedure Category Date Status Time Cbc With Differential LAB 08/02/24 Complete 08:56 B-Type Natriuretic LAB 08/02/24 Complete Peptide 08:56 Chest 1vw RAD 08/02/24 Resulted 08:56 12 Lead Ekg Tracing- EKG 08/02/24 Complete Technical 08:56 Magnesium LAB 08/02/24 Complete 08:56 Creatine Kinase, Total LAB 08/02/24 Complete 08:56 Troponin I High LAB 08/02/24 Complete Sensitivity 08:56 Basic Metabolic Panel LAB 08/02/24 Complete 08:56 Arterial Blood Gas + RT 08/02/24 Transmitted 08:56 Ipratropium/Albuterol PHA 08/02/24 Complete Neb (Duoneb) 09:00 Methylprednisolone PHA 08/02/24 Complete Succ 125mg (Solu-Medr 09:00 Influenza Type A & B, LAB 08/02/24 Complete Rapid 08:56 Covid Rna Naat LAB 08/02/24 Complete 08:56 Rapid (Group A Strep) LAB 08/02/24 Complete 08:56 Arterial Blood Gas LAB 08/02/24 Complete Arterial + 09:34 Current Medications Medications (Trade) Dose Ordered Sig/Sarah Route PRN Reason Start Time Stop Time Status Last Admin Dose Admin Albuterol (DUOneb) 2 udvial ONCE ONCE IH 08/02/24 09:00 08/02/24 09:01 DC 08/02/24 09:25 Methylprednisolone Sodium Succinate (Solu-medROL 125MG) 125 mg ONCE ONCE IVP 08/02/24 09:00 08/02/24 09:01 DC 08/02/24 09:08 Vital Signs Date Time Temp Pulse Resp B/P (MAP) Pulse Ox O2 Delivery O2 Flow Rate FiO2 08/02/24 09:36 93 18 08/02/24 09:15 98.2 79 20 179/73 97 Room Air* 0 21 08/02/24 08:53 98.1 90 20 200/100 98 Room Air 0 DX & DISP Disposition: Inpatient Decision to Admit Time: 11:05 Departure Impression: Primary Impression: COPD exacerbation Condition: Stable Referrals: LEANNE MEDINA MD (PCP) AMEE AGUILLON MD August 02, 2024 08:59
[2024-08-02] MEDS: Solu-medROL 125MG VIAL IVP ONE (09:08)
[2024-08-02 09:25] LABS: BASOPHILS # (AUTO) 0.03 K/uL (0.00-0.20); BASOPHILS % (AUTO) 0.4 % (0.0-5.0); EOSINOPHILS # (AUTO) 0.05 K/uL (0.00-0.70); EOSINOPHILS % (AUTO) 0.7 % (0.0-8.0); HEMATOCRIT 41.1 % (36-48); IMMATURE GRANULOCYTE ABSOLUTE 0.02 K/uL (0-1); LYMPHOCYTES # (AUTO) 1.6 K/uL (1.0-4.8); LYMPHOCYTES % (AUTO) 22.4 % (21.0-51.0); MEAN CORPUSCULAR HEMOGLOBIN 29.9 pg (27.0-33.0); MEAN CORPUSCULAR HGB CONC 32.8 g/dL (32.0-36.0); MEAN CORPUSCULAR VOLUME 91.1 fL (79-99); MONOCYTES # (AUTO) 0.5 K/uL (0.1-1.0); MONOCYTES % (AUTO) 7.4 % (3.0-13.0); NEUTROPHILS # (AUTO) 4.8 K/uL (1.8-7.7); NEUTROPHILS % (AUTO) 68.8 % (40.0-77.0); PLATELET COUNT (AUTO) 251 K/uL (130-400); RED BLOOD CELL COUNT(AUTO) 4.51 MIL/uL (4.00-5.50); RED CELL DISTRIBUTION WIDTH 13.2 % (11.0-15.5)
[2024-08-02] MEDS: IpraTROPium/alBUTERol SULFATE 3 ML SOLUTION IH ONE (09:25)
[2024-08-02 09:36] LABS: ABG BASE EXCESS -1.7 mmol/L (-2.0-3.0); ABG HCO3 22.3 mmol/L (21.0-28.0); ABG OXYGEN SATURATION 94.1 % (94.0-98.0); ABG PCO2 36 mmHg (32-45); ABG PH 7.415 (7.350-7.450); CARBON MONOXIDE 0.8 % (0.5-1.5); DEVICE COMMENT LR STACY; HHb 5.8; PO2, ARTERIAL BG 68.4 mmHg (83.0-108.0); VENT MODE, BG ROOM AIR (ROOM AIR)
[2024-08-02 09:37] LABS: CREATININE 0.5 mg/dL (0.5-1.0); POTASSIUM 3.5 mmol/L (3.5-5.1)
[2024-08-02 09:38] LABS: RAPID GROUP A STREP negative (NEGATIVE)
[2024-08-02 09:40] LABS: SARS-CoV-2, RNA, NAAT NEGATIVE SARS CoV-2 (NEGATIVE)
[2024-08-02 09:41] LABS: MAGNESIUM 2.2 mg/dL (1.80-2.40)
--- NOTE | 2024-08-02 09:43 | EKG ---
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
[2024-08-02 09:48] LABS: B-TYPE NATRIURETIC PEPTIDE 91 pg/mL (0-100); INFLUENZA TYPE A Negative For Type A (NEGATIVE); INFLUENZA TYPE B Negative For Type B (NEGATIVE)
--- NOTE | 2024-08-02 10:46 | HMCIMG ---
CHEST 1VW HISTORY: Shortness of breath COMPARISON: None FINDINGS: A frontal projection of the chest was obtained. No acute pulmonary infiltrates is seen. The heart is normal in size. Prominent interstitial markings are seen. Degenerative changes are seen. No evidence of aortic calcification is seen. IMPRESSION: 1. No acute pulmonary infiltrate is seen.
--- NOTE | 2024-08-02 11:43 | HP ---
[facility] HISTORY & PHYSICAL Date Patient Seen: August 02, 2024 Time of Visit: 11:43 Supervising Physician: Erik Bradley MD Primary Care Physician: Hernán Armstrong MD Outpatient Specialists: [ ] Inpatient Consults: [ ] PROBLEM LIST: Acute hypoxemic respiratory failure, POA COPD exacerbation POA Essential hypertension POA Suspected community-acquired pneumonia, POA Cachectic Hyperlipidemia Debilitation/frailty HPI: 78-year-old female with a past medical history of essential hypertension, hyperlipidemia and COPD who presented to the ED for evaluation of shortness of the breath and high blood pressure. She is also a former smoker. Quit 11 yrs ago after been diagnosed with COPD. on arrival to the ED patient has a blood pressure of 200/100 heart rate in the 90s respiratory rate of 20 saturating 98% on room air and afebrile. Blood pressure improved during emergency department visit without any antihypertensive medications. CBC and BMP were unremarkable. Chest x-ray consistent with COPD. ABGs showed a PO2 68.4 otherwise unremarkable. Per ED physician would like patient is admitted for COPD exacerbation. On assessment patient is awake alert and oriented x3. On 2 L via nasal cannula in no apparent distress and pleasant. She is able to hold a conversation with the fatigue. On auscultation patient had bilateral lobe rhonchi and wheezes. She will be admitted to the medical surgical floor on empiric antibiotics with Rocephin and azithromycin p.o. at the time of my visit she reports some mild shortness of breaths with moderate exertion and reports chronic cough with worsening in the last week. She uses inhaler Anuity daily and a rescue albuterol inhaler. She admits she has not followed up with her circuits engineer recently. PAST MEDICAL HX: see above PAST SURGICAL HX: noncontributory SOCIAL HISTORY: No tobacco, ETOH, or illicit drug use Coded Allergies: No Known Allergies (Unverified Allergy, Unknown, 06/13/23) REVIEW OF SYSTEMS: Const: Fever, or weight changes yes to fatigue. Eyes: no recent vision problems ENT: No congestion, ear pain, or sore throat C/V: no chest pain, palpitations or edema Resp: Yes To chronic. Yes to wheezing. GI: No abdominal pain, nausea, vomiting, constipation, or diarrhea : No incontinence of or dyuria M/S: No joint or pain swelling Skin: No rash Neuro: no headache, focal numbness, or weakness, dizziness or seizures Psych: no depression or anxiety Heme: no abnormal bruising or bleeding Lymph: no swollen glands PHYSICAL EXAM: GENERAL: alert, weak, awake oriented x 3 HEENT: EOMI, Sclera non icteric, moist mucosa NECK: Supple, no JVD, trachea midline LUNGS: Rhonchi is wheezing to all lobes. HEART: Regular rate and rhythm. Normal S1 and S2, without murmurs ABD: Abdomen soft, nontender. Bowel sounds present EXT: No clubbing cyanosis or edema NEURO: Alert and oriented to person, follows commands Vital Signs (last 8hr) Date Time Temp Pulse Resp B/P (MAP) Pulse Ox O2 Delivery O2 Flow Rate FiO2 08/02/24 11:15 98.4 90 18 168/70 98 Room Air* 0 21 08/02/24 09:36 93 18 08/02/24 09:15 98.2 79 20 179/73 97 Room Air* 0 21 08/02/24 08:53 98.1 90 20 200/100 98 Room Air 0 LABS: Hematology Labs: Test 08/02/24 09:14 Range/Units White Blood Count 7.0 4.8-10.8 K/uL Red Blood Count 4.51 4.00-5.50 MIL/uL Hemoglobin 13.5 12.0-16.0 g/dL Hematocrit 41.1 36-48 % Mean Corpuscular Volume 91.1 79-99 fL Mean Corpuscular Hemoglobin 29.9 27.0-33.0 pg Mean Corpuscular Hemoglobin Concent 32.8 32.0-36.0 g/dL Red Cell Distribution Width 13.2 11.0-15.5 % Platelet Count 251 130-400 K/uL Mean Platelet Volume 10.0 7.5-10.5 fL Immature Granulocyte % (Auto) 0.3 0-1 % Neutrophils (%) (Auto) 68.8 40.0-77.0 % Lymphocytes (%) (Auto) 22.4 21.0-51.0 % Monocytes (%) (Auto) 7.4 3.0-13.0 % Eosinophils (%) (Auto) 0.7 0.0-8.0 % Basophils (%) (Auto) 0.4 0.0-5.0 % Neutrophils # (Auto) 4.8 1.8-7.7 K/uL Lymphocytes # (Auto) 1.6 1.0-4.8 K/uL Monocytes # (Auto) 0.5 0.1-1.0 K/uL Eosinophils # (Auto) 0.05 0.00-0.70 K/uL Basophils # (Auto) 0.03 0.00-0.20 K/uL Absolute Immature Granulocyte (auto 0.02 0-1 K/uL Nucleated Red Blood Cells 0.0 0.0-0.19 % Chemistry Labs: Test 08/02/24 09:14 Range/Units Sodium Level 143 136-145 mmol/L Potassium Level 3.5 3.5-5.1 mmol/L Chloride Level 105 101-111 mmol/L Carbon Dioxide Level 30 21-32 mmol/L Blood Urea Nitrogen 14 7-18 mg/dL Creatinine 0.5 0.5-1.0 mg/dL Glomerular Filtration Rate Calc 95 >90 mL/min Random Glucose 89 70-105 mg/dL Total Calcium 9.2 8.5-10.1 mg/dL Magnesium Level 2.20 1.80-2.40 mg/dL Total Creatine Kinase 90 # 21-232 U/L Troponin I High Sensitivity 9 4-50 ng/L B-Type Natriuretic Peptide 91 0-100 pg/mL DIAGNOSTICS / RADIOLOGY RESULTS: Signed PATIENT: APARNA GARCIA MR#: [id number] : 1945 SEX: F AGE: 78 LOCATION: [facility] ORDER STATUS: [facility] REPORT#: [id number] SERVICE [id number] REASON: sob ORDERING PHYSICIAN: AMEE AGUILLON MD PROCEDURE: CXR1VW - CHEST 1VW CHEST 1VW HISTORY: Shortness of breath COMPARISON: None FINDINGS: A frontal projection of the chest was obtained. No acute pulmonary infiltrates is seen. The heart is normal in size. Prominent interstitial markings are seen. Degenerative changes are seen. No evidence of aortic calcification is seen. IMPRESSION: 1. No acute pulmonary infiltrate is seen. DICTATED BY: LEXX PEACE MD DATE: 08/02/241043 ELECTRONICALLY SIGNED BY: LEXX PEACE MD DATE: 08/02/24 104 PLAN Admit to medical floor Prednisone 20 mg p.o. daily Empiric antibiotic treatment with Rocephin and azithromycin Given exposure of smoking for many years, patient has a developed COPD with exacerbation. Patient to follow up as outpatient at pulmonary clinic in two weeks for PFTs, we will continue with nebulizer treatments with atrovent, Pulmicort, steroids. Singulair 10 mg daily Follow respiratory cultures Maintain O2 sats above 88% Gi PPX with protonix due to steroids CT chest in a.m. NEURO: Minimize central acting medications as possible. Maintain fall precautions, adequate lighting during the day PULMONARY: Supplemental 02 as needed. Maintain aspiration precautions at all times CARDIOVASCULAR: Follow hemodynamics. Vital signs per facility protocol GI & NUTRITION: Continue with nutritional support. Continue stool softeners and laxatives as needed. KIDNEYS & ELECTROLYTES: Strict monitoring of intake, output and overall fluid balance. Avoid nephrotoxic medications to the extent possible. Medications to be dosed according to renal function. Monitor electrolytes and replace as needed ENDOCRINE: Maintain blood glucose between 100-180 at all times. Hypoglycemia protocol in place INFECTIOUS DISEASE: Trend temperature, WBC and procalcitonin level Follow cultures, deescalate antibiotics as soon as possible. Panculture if new onset fever ONCOLOGY/HEMATOLOGY/COAGULATION: Monitor for s/s of bleeding Monitor hemoglobin, coagulation studies as needed SKIN: Pressure ulcer prevention per facility protocol Specialty mattress ORTHO/REHAB: Continue PT/OT Prophylaxis: Continue GI and DVT prophylaxis Code Status: Full Resuscitation Disposition: TBD Other: Total patient care time exceeds 35 minutes excluding all procedures. ATTESTATION BY PHYSICIAN I reviewed the documentation, medical decision making, and treatment plan as noted by the mid-level provider above. I agree with the findings and plan of care. Erik Bradley MD, NELLY J ARNP August 02, 2024 11:43
[2024-08-02] MEDS: predniSONE 20 MG TABLET PO SCH (11:49)
[2024-08-02] MEDS: monteLUKAST sodIUM 10 MG TAB PO SCH (11:49)
[2024-08-02] MEDS ORDERED: acetaMINOPHEN 325 MG TAB PO PRN (12:00)
[2024-08-02] MEDS ORDERED: acetaMINOPHEN 650 MG SUPPOSITORY RC PRN (12:00)
[2024-08-02] MEDS: AZITHROMYCIN 250 MG TABLET PO ONE (12:58)
[2024-08-02] MEDS: cefTRIAXone 2GM VIAL IVPB SCH (12:58)
--- NOTE | 2024-08-02 14:44 | NUR ---
DCP: HOME Pt lives at home alone, daughter lives next door. Daughter Dayana Prieto [phone] is ER contact/ and provider 1:15 to 5;15 daily. Pt attends [facility] and they transport to MD appts as needed. T has a cane, walker, hospital bed and shower chair, no HH or HD services. PCP is Shanna Armstrong and she uses [facility] for rx. Denies need for SNF, will return home. Addendum: 08/02/24 at 1445 by GABRIEL SOLANO SS Amended: Links added.
--- NOTE | 2024-08-02 16:50 | NUR ---
PT is admitted and orient to the unit and her room. She is shown how ti use the call tidwell. The pt is resting in bed with the bed in a low position. She is encouraged to call for any of her needs. The call tidwell is in reach. The bed alarm is also activated for her safety. The patient's daughter Dayana is at her bedside.
[2024-08-02] MEDS ORDERED: ATOR20TA65 PO (16:53)
[2024-08-02] MEDS: BUDESONIDE 0.5 MG/2 ML INH IH SCH (18:47)
[2024-08-02] MEDS: SODIUM CHLORIDE 3% FOR INHALATION 4 ML/AMP VIAL.NEB IH ONE ×2 (18:47→23:51)
[2024-08-02] MEDS: IpraTROPium/alBUTERol SULFATE 3 ML SOLUTION IH SCH (18:47)
[2024-08-03] VITALS (15 sets, daily range): BP systolic 123–150; BP diastolic 57–78; PULSE 73–111; RESP 16–20; TEMP 97.6–98.7; O2SAT 95–99
[2024-08-03] MEDS: SODIUM CHLORIDE 3% FOR INHALATION 4 ML/AMP VIAL.NEB IH ONE (01:51)
[2024-08-03 04:03] LABS: BASOPHILS # (AUTO) 0.01 K/uL (0.00-0.20); BASOPHILS % (AUTO) 0.1 % (0.0-5.0); HEMATOCRIT 34.2 % (36-48); IMMATURE GRANULOCYTE ABSOLUTE 0.03 K/uL (0-1); LYMPHOCYTES # (AUTO) 0.8 K/uL (1.0-4.8); LYMPHOCYTES % (AUTO) 10.4 % (21.0-51.0); MEAN CORPUSCULAR HEMOGLOBIN 29.7 pg (27.0-33.0); MEAN CORPUSCULAR VOLUME 89.8 fL (79-99); MONOCYTES # (AUTO) 0.5 K/uL (0.1-1.0); MONOCYTES % (AUTO) 6.1 % (3.0-13.0); NEUTROPHILS # (AUTO) 6.6 K/uL (1.8-7.7); PLATELET COUNT (AUTO) 232 K/uL (130-400); RED BLOOD CELL COUNT(AUTO) 3.81 MIL/uL (4.00-5.50); RED CELL DISTRIBUTION WIDTH 13.2 % (11.0-15.5); WHITE BLOOD COUNT (AUTO) 7.9 K/uL (4.8-10.8)
[2024-08-03 04:27] LABS: CREATININE 0.6 mg/dL (0.5-1.0); MAGNESIUM 2.1 mg/dL (1.80-2.40); PHOSPHORUS 3.8 mg/dL (2.5-4.9); POTASSIUM 3.5 mmol/L (3.5-5.1); THYROID STIMULATING HORMONE 0.5 uIU/mL (0.36-3.74)
[2024-08-03 04:37] LABS: B-TYPE NATRIURETIC PEPTIDE 78 pg/mL (0-100)
[2024-08-03] MEDS ORDERED: IOHEXOL-350 75 ML VIAL IV ONE (06:17)
[2024-08-03] MEDS: PANTOPrazole 40 MG TAB DR PO SCH (08:13)
[2024-08-03] MEDS: ENOXAPARIN SODIUM 40 MG/0.4 ML SYRINGE SQ SCH (08:19)
--- NOTE | 2024-08-03 08:21 | HMCIMG ---
CT CHEST PE PROTOCOL WWO CONT HISTORY: Pulmonary embolism COMPARISON: 06/13/2023 TECHNIQUE: CT angiography of the chest was performed. The study was performed using angiographic technique with maximum intensity projection reconstruction images. Patient was given 75 cc of Omnipaque through intravenous route. FINDINGS: No CT evidence of filling defect is seen to suggest pulmonary embolus. No CT evidence of aortic dissection is seen. No evidence of parenchymal disease is seen. Mild COPD changes are seen. Coronary arterial calcifications are seen. Fatty changes of the liver are noted. There is stable 2.1 cm sebaceous cyst along the posterior midline thorax. Gallbladder is distended. No CT evidence of pleural effusion or pericardial effusion is seen. The heart is enlarged. No evidence of adrenal mass is seen. Degenerative changes of the spine are noted. IMPRESSION: 1. No CT evidence of acute pulmonary embolus is seen. Mild COPD. CT was performed with one or more following dose reduction techniques: automated exposure control, adjustment of the mA and kv according to patient's size, or use of a iterative reconstruction technique.
--- NOTE | 2024-08-03 10:25 | HMCIMG ---
US VENOUS DOPPLER BILATERAL HISTORY: DVT COMPARISON: None TECHNIQUE: Bilateral lower extremity venous Doppler ultrasound study was performed. FINDINGS: The common femoral, femoral, popliteal, and posterior tibial veins are visualized. Normal flow with augmentation and compressibilities are demonstrated. The greater saphenous veins are also seen and grossly patent. IMPRESSION: 1. No evidence of deep venous thrombosis is seen.
[2024-08-03] MEDS: AZITHROMYCIN 250 MG TABLET PO SCH (12:27)
[2024-08-03] MEDS ORDERED: PoTASSium chl 10% ELIXIR 20MEQ 20 MEQ/15 ML UDCUP PO PRN (16:00)
[2024-08-03] MEDS ORDERED: PoTASSium chloRIDE 20MEQ/100ML 100 ML IV PRN (16:00)
--- NOTE | 2024-08-03 16:12 | PN ---
[facility] PROGRESS NOTE Date Patient Seen: August 03, 2024 Time of Visit: 1229 Supervising Physician: Dr. Hartman Primary Care Physician: Hernán Armstrong MD Outpatient Specialists: [ ] Inpatient Consults: [ ] PROBLEM LIST: Acute hypoxemic respiratory failure, POA COPD exacerbation POA Essential hypertension POA Suspected community-acquired pneumonia, POA Cachectic Hyperlipidemia Debilitation/frailty Ex-smoker INTERVAL HISTORY: 08/03 patient was seen and examined at bedside with the daughter present. Patient currently on room air is tolerating well. Patient's ABG this a.m. shows pH of 7.4 CO2 of 36 PO2 of 68 bicarb 22 . At time of visit patient denies any chest pain reports shortness of breath has improved. Patient currently pending sputum culture. Patient's venous Dopplers negative for DVT patient's CTA chest negative for PE. Patient to continue on IV antibiotics. Patient will require 6 minute walk prior to discharge for home oxygen evaluation. Plan is for possible discharge tomorrow morning REVIEW OF SYSTEMS: Two point review of system reviewed with patient all pertinent positives mentioned above otherwise negative PHYSICAL EXAM: GENERAL: alert, weak, awake oriented x 3 HEENT: EOMI, Sclera non icteric, moist mucosa NECK: Supple, no JVD, trachea midline LUNGS: Diminished no wheezing HEART: Regular rate and rhythm. Normal S1 and S2, without murmurs ABD: Abdomen soft, nontender. Bowel sounds present EXT: No clubbing cyanosis or edema NEURO: Alert and oriented to person, follows commands Vital Signs (last 8hr) Date Time Temp Pulse Resp B/P (MAP) Pulse Ox O2 Delivery O2 Flow Rate FiO2 08/03/24 13:56 105 18 08/03/24 12:00 98.8 111 19 150/72 95 Room Air 08/03/24 09:47 93 18 N/Cannula Low lpm 2.0 28 08/03/24 09:46 93 18 LABS: Hematology Labs: Test 08/03/24 03:52 Range/Units White Blood Count 7.9 4.8-10.8 K/uL Red Blood Count 3.81 L 4.00-5.50 MIL/uL Hemoglobin 11.3 L 12.0-16.0 g/dL Hematocrit 34.2 L 36-48 % Mean Corpuscular Volume 89.8 79-99 fL Mean Corpuscular Hemoglobin 29.7 27.0-33.0 pg Mean Corpuscular Hemoglobin Concent 33.0 32.0-36.0 g/dL Red Cell Distribution Width 13.2 11.0-15.5 % Platelet Count 232 130-400 K/uL Mean Platelet Volume 10.1 7.5-10.5 fL Immature Granulocyte % (Auto) 0.4 0-1 % Neutrophils (%) (Auto) 83.0 H 40.0-77.0 % Lymphocytes (%) (Auto) 10.4 L 21.0-51.0 % Monocytes (%) (Auto) 6.1 3.0-13.0 % Eosinophils (%) (Auto) 0.0 0.0-8.0 % Basophils (%) (Auto) 0.1 0.0-5.0 % Neutrophils # (Auto) 6.6 1.8-7.7 K/uL Lymphocytes # (Auto) 0.8 L 1.0-4.8 K/uL Monocytes # (Auto) 0.5 0.1-1.0 K/uL Eosinophils # (Auto) 0.00 0.00-0.70 K/uL Basophils # (Auto) 0.01 0.00-0.20 K/uL Absolute Immature Granulocyte (auto 0.03 0-1 K/uL Nucleated Red Blood Cells 0.0 0.0-0.19 % Chemistry Labs: Test 08/03/24 03:52 08/02/24 23:13 Range/Units Sodium Level 143 136-145 mmol/L Potassium Level 3.5 3.5-5.1 mmol/L Chloride Level 105 101-111 mmol/L Carbon Dioxide Level 30 21-32 mmol/L Blood Urea Nitrogen 18 7-18 mg/dL Creatinine 0.6 0.5-1.0 mg/dL Glomerular Filtration Rate Calc 91 >90 mL/min Random Glucose 139 #H 70-105 mg/dL Total Calcium 9.2 8.5-10.1 mg/dL Phosphorus Level 3.8 2.5-4.9 mg/dL Magnesium Level 2.10 1.80-2.40 mg/dL B-Type Natriuretic Peptide 78 0-100 pg/mL Procalcitonin < 0.05 L 0.05-0.5 ng/mL Thyroid Stimulating Hormone (TSH) 0.50 # 0.36-3.74 uIU/mL Total Creatine Kinase 68 21-232 U/L Troponin I High Sensitivity 6.0 4-50 ng/L Coagulation Labs: Test 08/03/24 03:52 Range/Units D-Dimer Quantitative (PE/DVT) 845 *H 0-500 ng/mL DIAGNOSTICS / RADIOLOGY RESULTS: na PLAN Prednisone 20 mg p.o. daily Empiric antibiotic treatment with Rocephin and azithromycin Given exposure of smoking for many years, patient has a developed COPD with exacerbation. Patient to follow up as outpatient at pulmonary clinic in two weeks for PFTs, we will continue with nebulizer treatments with atrovent, Pulmicort, steroids. Singulair 10 mg daily Follow respiratory cultures Maintain O2 sats above 88% Gi PPX with protonix due to steroids 6 minute walk prior to discharge NEURO: Minimize central acting medications as possible. Maintain fall precautions, adequate lighting during the day PULMONARY: Supplemental 02 as needed. Maintain aspiration precautions at all times CARDIOVASCULAR: Follow hemodynamics. Vital signs per facility protocol GI & NUTRITION: Continue with nutritional support. Continue stool softeners and laxatives as needed. KIDNEYS & ELECTROLYTES: Strict monitoring of intake, output and overall fluid balance. Avoid nephrotoxic medications to the extent possible. Medications to be dosed according to renal function. Monitor electrolytes and replace as needed ENDOCRINE: Maintain blood glucose between 100-180 at all times. Hypoglycemia protocol in place INFECTIOUS DISEASE: Trend temperature, WBC and procalcitonin level Follow cultures, deescalate antibiotics as soon as possible. Panculture if new onset fever ONCOLOGY/HEMATOLOGY/COAGULATION: Monitor for s/s of bleeding Monitor hemoglobin, coagulation studies as needed SKIN: Pressure ulcer prevention per facility protocol Specialty mattress ORTHO/REHAB: Continue PT/OT Prophylaxis: Continue GI and DVT prophylaxis Code Status: Full Resuscitation Disposition: TBD Other: Case discussed with supervising physician plan of care agreed upon PERRY LUCIO August 03, 2024 16:12
[2024-08-03] MEDS: PoTASSium chloRIDE 20MEQ ER 20 MEQ ERTAB PO PRN (17:17)
[2024-08-04] VITALS (10 sets, daily range): BP systolic 145–161; BP diastolic 68–82; PULSE 91–124; RESP 17–20; TEMP 97.6–98.3; O2SAT 92–97
--- NOTE | 2024-08-04 16:30 | NUR ---
DISCHARGED Pt was educated on discharge information & COPD action george. Pt verbalized understanding & denied needing further assistance. IV sites on both arms were removed without complications. Pt was transported to the main entrance by nurse. No s/s of distress noted.
--- NOTE | 2024-08-04 16:34 | DS ---
[facility] DISCHARGE SUMMARY Date Patient Seen: August 04, 2024 Time of Visit: 1246 Supervising Physician: Dr. Duran Primary Care Physician: Hernán Armstrong MD Outpatient Specialists: [ ] Inpatient Consults: [ ] PROBLEM LIST: Acute hypoxemic respiratory failure, POA, resolved back to baseline passed 6 minute walk on room air COPD exacerbation POA, resolved Essential hypertension POA Suspected community-acquired pneumonia, POA , completed treatment Cachectic Hyperlipidemia Debilitation/frailty Ex-smoker HOSPITAL COURSE: HPI (per admitting provider)78-year-old female with a past medical history of essential hypertension, hyperlipidemia and COPD who presented to the ED for evaluation of shortness of the breath and high blood pressure. She is also a former smoker. Quit 11 yrs ago after been diagnosed with COPD. on arrival to the ED patient has a blood pressure of 200/100 heart rate in the 90s respiratory rate of 20 saturating 98% on room air and afebrile. Blood pressure improved during emergency department visit without any antihypertensive medications. CBC and BMP were unremarkable. Chest x-ray consistent with COPD. ABGs showed a PO2 68.4 otherwise unremarkable. Per ED physician would like patient is admitted for COPD exacerbation. Patient was seen and examined by bedside with family present. Patient is awake alert able to answer simple questions appropriately. Patient remains on room air is tolerating well. Patient passed 6 minute walk. Patient denies any chest pain or shortness of breadth. Denies any nausea vomiting or abdominal pain. Patient states is feeling much better and is ready to go home. Instructed patient will be getting discharged today and will need to follow up with PCP within 3-5 days upon discharge. Patient voices understanding agrees with plan has no questions at this time The patient was treated for the following problems: ACTIVE PROBLEM LIST FOR THE HOSPITALIZATION: CHRONIC PROBLEMS: continue previous management per PCP unless otherwise indicated [employer]ESS [employer]ELOPER FINDINGS/RECOMMENDATIONS: [ ] PROCEDURES: as mentioned above DISCHARGE MEDICATIONS: Pt hemodynamically stable and afebrile at time of discharge. PCP notified of patients admission, hospital course and discharge. Continued Medications: [Albuterol] () Albuterol Sulfate (Proair Hfa) 8.5 Gm Hfa.aer.ad 8.5 GM IH Q4HPRN PRN for SHORTNESS OF BREATH Atorvastatin Calcium (Atorvastatin Calcium) 20 Mg Tablet 20 MG PO HS, TAB [Ellipta] () 100 MCG IH DAILY Lisinopril (Lisinopril) 10 Mg Tablet 10 MG PO DAILY, TAB Meclizine HCl (Meclizine HCl) 25 Mg Tablet 25 MG PO TIDP PRN for NAUSEA/VOMITING, TAB Discontinued Medications: Alendronate Sodium (Alendronate Sodium) 70 Mg Tablet 70 MG PO QWEEK, TAB Benzonatate (Benzonatate) 100 Mg Capsule 200 MG PO BID, #30 CAP Famotidine (Famotidine) 20 Mg Tablet 20 MG PO DAILY, #30 TAB Fluticasone/Umeclidin/Vilanter (Trelegy Ellipta 100-62.5-25) 100-62.5 Blst.w.dev 1 EACH IH DAILY Levofloxacin (Levaquin 750Mg Tabs) 750 Mg Tablet 750 MG PO DAILY, #5 TAB 0 Refills Multivitamin (Multi Vitamin Daily) 1 Each Tablet 1 EACH PO DAILY, TAB Naproxen (Naproxen) 375 Mg Tablet 375 MG PO BIDMEALS PRN for PAIN LEVEL 1 TO 3, TAB Oxycodone HCl/Acetaminophen (Percocet 5-325 mg Tablet) 5 Mg-325 Mg Tablet 1 EACH PO Q6H for pain, #10 TAB 0 Refills Prednisone (Prednisone) 20 Mg Tablet 40 MG PO DAILY, #3 TAB 0 Refills Rosuvastatin Calcium (Crestor) 10 Mg Tablet 10 MG PO HS, TAB Theophylline Anhydrous (Theophylline) 400 Mg Tablet.er 400 MG PO HS, TAB PHYSICAL EXAM: GENERAL: alert, weak, awake oriented x 3 HEENT: EOMI, Sclera non icteric, moist mucosa NECK: Supple, no JVD, trachea midline LUNGS: Diminished no wheezing HEART: Regular rate and rhythm. Normal S1 and S2, without murmurs ABD: Abdomen soft, nontender. Bowel sounds present EXT: No clubbing cyanosis or edema NEURO: Alert and oriented to person, follows commands FOLLOW-UP: Follow-up with PCP in 2-3 days RECOMMENDATIONS: See Discharge Instructions This case was seen and discussed with my supervising physician. 35 minutes spent on discharge process, including evaluation of the patient, discussion with nursing staff, medication reconciliation and follow-up appointments PERRY LUCIO August 04, 2024 16:34
== END 2024-08-04 16:30 | disposition home or self-care (01) ==
LOC: EDH 08:52 → EDHIP 11:37 → INTOOBSV 11:37 → 4AH 16:39
PROVIDERS: ADMIT Internal Medicine; ATTEND Internal Medicine
DX: J96.01 Acute respiratory failure with hypoxia (principal); Z20.822 Contact with and (suspected) exposure to COVID-19; J44.1 Chronic obstructive pulmonary disease with (acute) exacerbation; I10 Essential (primary) hypertension; E78.5 Hyperlipidemia, unspecified; R54 Age-related physical debility; R60.0 Localized edema; M81.0 Age-related osteoporosis without current pathological fracture; Z87.891 Personal history of nicotine dependence; Z98.890 Other specified postprocedural states; Z79.899 Other long term (current) drug therapy
CPT/HCPCS: 96375; 99285; 82435; 82550 ×4; 82947; 83735 ×2; 84484 ×4; 84132; 84295; 80048 ×2; 82803; 83880 ×2; 85025 ×2; 85018; 87071; 87880; 87205; 87804 ×2; 83605; 36415 ×2; 87635; 71045; 96365; 93005; 36600; 84145 ×2; 96372 ×2; 96366 ×2; 84443; 84100; 85378; 71270; 93970; 94760; G0378 ×25; J2919; J0696 ×3; J1650 ×2; Q9967; 94640; 94664

== ENCOUNTER 2024-08-22 07:25 | Emergency (ER) | payer OTHER, MEDICARE ==
[~2024-08-22] VITALS: Ht 162.6 cm; Wt 59.4 kg
[~2024-08-22 07:25] MED LIST changes: -ALEN70TA80 PO; +ATOR20TA65 PO; -BENZ-226 PO; -FAMO20TA8 PO; -FLUT1BLS3 IH; -LEVO750T68 PO; -MULT-1203 PO; -NAPR-1192 PO; -OXYC-38 PO; -PRED20TA3 PO; -ROSU10TA22 PO; -THEO400T3 PO
--- NOTE | 2024-08-22 07:38 | EKG ---
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
[2024-08-22 08:05] LABS: BASOPHILS # (AUTO) 0.03 K/uL (0.00-0.20); BASOPHILS % (AUTO) 0.5 % (0.0-5.0); EOSINOPHILS # (AUTO) 0.08 K/uL (0.00-0.70); EOSINOPHILS % (AUTO) 1.3 % (0.0-8.0); HEMATOCRIT 37.6 % (36-48); IMMATURE GRANULOCYTE ABSOLUTE 0.02 K/uL (0-1); LYMPHOCYTES # (AUTO) 1.6 K/uL (1.0-4.8); LYMPHOCYTES % (AUTO) 25.5 % (21.0-51.0); MEAN CORPUSCULAR HEMOGLOBIN 30.2 pg (27.0-33.0); MEAN CORPUSCULAR VOLUME 91.5 fL (79-99); MONOCYTES # (AUTO) 0.5 K/uL (0.1-1.0); MONOCYTES % (AUTO) 8.1 % (3.0-13.0); NEUTROPHILS % (AUTO) 64.3 % (40.0-77.0); PLATELET COUNT (AUTO) 159 K/uL (130-400); RED BLOOD CELL COUNT(AUTO) 4.11 MIL/uL (4.00-5.50); RED CELL DISTRIBUTION WIDTH 13.3 % (11.0-15.5); WHITE BLOOD COUNT (AUTO) 6.3 K/uL (4.8-10.8)
[2024-08-22 08:20] LABS: CREATININE 0.6 mg/dL (0.5-1.0); POTASSIUM 3.6 mmol/L (3.5-5.1)
[2024-08-22 08:24] LABS: ALBUMIN 3.8 g/dL (3.5-5.0); BILIRUBIN,DIRECT 0.1 mg/dL (0.0-0.3); BILIRUBIN,TOTAL 0.3 mg/dL (0.2-1.0); TOTAL PROTEIN, SERUM 7.3 g/dL (6.0-8.3)
[2024-08-22 08:30] LABS: B-TYPE NATRIURETIC PEPTIDE 41 pg/mL (0-100)
--- NOTE | 2024-08-22 08:40 | HMCIMG ---
Exam Type: CHEST 1VW Clinical Information: CHEST PAIN Comparison: None Findings: The lungs are clear of infiltrates. The heart is normal in size. The bony and soft tissue structures of the chest are unremarkable. Impression: Clear lungs.
[2024-08-22 08:48] LABS: APPEARANCE,URINE CLEAR (CLEAR); BILIRUBIN,URINE NEGATIVE (NEGATIVE); GLUCOSE, URINE (UA) NEGATIVE (NEGATIVE); KETONES,URINE NEGATIVE (NEGATIVE); LEUKOCYTE ESTERASE ,URINE 25 Leu/uL (NEGATIVE); NITRATE,URINE NEGATIVE (NEGATIVE); OCCULT BLOOD,URINE NEGATIVE (NEGATIVE); PH,URINE 6.5 (5.0-8.0); PROTEIN,URINE NEGATIVE (NEGATIVE); UROBILINOGEN,URINE 0.2 mg/dL (0.2-1.0)
[2024-08-22 08:50] LABS: ADD UA MICROSCOPIC YES; COLOR,URINE STRAW (YELLOW)
[2024-08-22 08:51] LABS: MUCUS,URINE RARE LPF (None Seen); RBC,URINE 0-1 /HPF (0-1); SQUAMOUS EPITHELIAL CELL,UR FEW /HPF (0-2); WBC,URINE 0-1 /HPF (0-1)
[2024-08-22 09:15] LABS: COVID19 (SARS ANTIGEN RAPID) PRESUMPTIVE NEGATIVE (NEGATIVE); INFLUENZA TYPE A Negative For Type A (NEGATIVE); INFLUENZA TYPE B Negative For Type B (NEGATIVE)
--- NOTE | 2024-08-22 10:00 | ERN ---
ED Note History of Present Illness Stated Complaint: SOB, EPIGASTRIC PAIN Chief Complaint: Shortness of Breath Time Seen by MD: 07:27 Dictation: 78-year-old female presenting to the emergency department for episode of worsening shortness of breath and epigastric abdominal pain that she described as cramps patient reports that symptoms started while on the way to the daycare this morning. She was brought to the emergency department instead reports that upon arrival her symptoms have now resolved that she is back to baseline she has a history of COPD in his chronically short of breath. Allergies: Coded Allergies: No Known Allergies (Unverified Allergy, Unknown, 06/13/23) Home Meds Reported Medications Atorvastatin Calcium (Atorvastatin Calcium) 20 Mg Tablet, 20 MG PO HS, TAB 08/02/24 Lisinopril (Lisinopril) 10 Mg Tablet, 10 MG PO DAILY, TAB 11/20/21 Meclizine HCl (Meclizine HCl) 25 Mg Tablet, 25 MG PO TIDP PRN for NAUSEA/VOMITING, TAB 11/20/21 Albuterol Sulfate (Proair Hfa) 8.5 Gm Hfa.aer.ad, 8.5 GM IH Q4HPRN PRN for SHORTNESS OF BREATH 11/20/21 [Albuterol] No Conflict Check 03/30/19 [Ellipta] No Conflict Check, 100 MCG IH DAILY 03/30/19 Past Medical History Past Medical History: Asthma, COPD, High Cholesterol, Hypertension, Other Additional Past Medical Hx: HX OF OSTEOPOROSIS Surgical History: Other Surgical History Other: HIP SX Family History: Negative Social History: Negative History: Not Applicable Review of System Dictation Constitutional: Negative for fever,chills, and weight loss Eyes: Negative for injury, pain,redness, and discharge ENT: Negative for injury,pain or swelling Cardiovascular: Negative for chest pain, palpitations, and edema Respiratory: Per HPI Abdomen/GI: Per HPI Back: Negative for injury and pain : Negative for injury, bleeding and discharge MS/Extremity: Negative for injury and deformity Skin: Negative for rash, and discoloration Neuro: Negative for headache, weakness, numbness, tingling, and seizure Psych: Negative for suicide ideation, homicidal ideation, and hallucinations Initial Vital Sign VS Vital Signs Date Time Temp Pulse Resp B/P (MAP) Pulse Ox O2 Delivery O2 Flow Rate FiO2 08/22/24 07:25 86 20 131/50 96 Nasal Cannula 3.0 Physical Exam Dictation General: awake, alert, NAD Head/Face: Normocephalic, atraumatic Eyes: PERRL, EOMI, vision at baseline ENT: oral cavity clear, TMs clear, no signs of infection Neck: Trachea midline, supple, no nuchal rigidity Cardiovascular: RRR, normal S1/S2, No MRGs, no JVD Respiratory: Coarse and diminished bilateral breath sounds Abdomen: Soft, non-tender, non-distended, normal bowel sounds, no guarding or rebound. Skin: Warm, dry, normal turgor, no rash MS/Extremity: Pulses equal, no cyanosis, neurovascular intact, FROM Neuro: COAx4, GCS 15, strength 5/5, CN 2-12 intact, normal cerebellar exam, normal gait, Psych: Normal behavior, mood, and affect normal Results (Laboratory/Radiology) Laboratory/Radiology Laboratory Tests Test 08/22/24 07:40 08/22/24 08:07 08/22/24 08:20 White Blood Count 6.3 K/uL (4.8-10.8) Red Blood Count 4.11 MIL/uL (4.00-5.50) Hemoglobin 12.4 g/dL (12.0-16.0) Hematocrit 37.6 % (36-48) Mean Corpuscular Volume 91.5 fL (79-99) Mean Corpuscular Hemoglobin 30.2 pg (27.0-33.0) Mean Corpuscular Hemoglobin Concent 33.0 g/dL (32.0-36.0) Red Cell Distribution Width 13.3 % (11.0-15.5) Platelet Count 159 K/uL (130-400) Mean Platelet Volume 11.6 fL (7.5-10.5) H Immature Granulocyte % (Auto) 0.3 % (0-1) Neutrophils (%) (Auto) 64.3 % (40.0-77.0) Lymphocytes (%) (Auto) 25.5 % (21.0-51.0) Monocytes (%) (Auto) 8.1 % (3.0-13.0) Eosinophils (%) (Auto) 1.3 % (0.0-8.0) Basophils (%) (Auto) 0.5 % (0.0-5.0) Neutrophils # (Auto) 4.0 K/uL (1.8-7.7) Lymphocytes # (Auto) 1.6 K/uL (1.0-4.8) Monocytes # (Auto) 0.5 K/uL (0.1-1.0) Eosinophils # (Auto) 0.08 K/uL (0.00-0.70) Basophils # (Auto) 0.03 K/uL (0.00-0.20) Absolute Immature Granulocyte (auto 0.02 K/uL (0-1) Nucleated Red Blood Cells 0.0 % (0.0-0.19) Sodium Level 143 mmol/L (136-145) Potassium Level 3.6 mmol/L (3.5-5.1) Chloride Level 107 mmol/L (101-111) Carbon Dioxide Level 33 mmol/L (21-32) H Blood Urea Nitrogen 19 mg/dL (7-18) H Creatinine 0.6 mg/dL (0.5-1.0) Glomerular Filtration Rate Calc 91 mL/min (>90) Random Glucose 105 mg/dL (70-105) Lactic Acid Level 1.6 mmol/L (0.8-2.5) Total Calcium 9.2 mg/dL (8.5-10.1) Total Bilirubin 0.3 mg/dL (0.2-1.0) Direct Bilirubin 0.1 mg/dL (0.0-0.3) Aspartate Amino Transf (AST/SGOT) 16 U/L (10-37) Alanine Aminotransferase (ALT/SGPT) 25 U/L (12-78) Alkaline Phosphatase 85 U/L (50-136) Total Creatine Kinase 79 U/L (21-232) Troponin I High Sensitivity 7 ng/L (4-50) B-Type Natriuretic Peptide 41 pg/mL (0-100) Total Protein 7.3 g/dL (6.0-8.3) Albumin 3.8 g/dL (3.5-5.0) Lipase 43 U/L (16-77) Urine Color STRAW (YELLOW) Urine Appearance CLEAR (CLEAR) Urine pH 6.5 (5.0-8.0) Urine Specific Margie 1.009 (1.001-1.031) Urine Protein NEGATIVE mg/dL (NEGATIVE) Urine Glucose (UA) NEGATIVE mg/dL (NEGATIVE) Urine Ketones NEGATIVE mg/dL (NEGATIVE) Urine Occult Blood NEGATIVE (NEGATIVE) Urine Nitrate NEGATIVE (NEGATIVE) Urine Bilirubin NEGATIVE mg/dL (NEGATIVE) Urine Urobilinogen 0.2 mg/dL (0.2-1.0) Urine Leukocyte Esterase 25 Sol[place]/uL (NEGATIVE) H Urine RBC 0-1 /HPF (0-1) Urine WBC 0-1 /HPF (0-1) Urine Squamous Epithelial Cells FEW /HPF (0-2) Urine Bacteria None /HPF (None Seen) Influenza Type A Antigen Negative For Type A Influenza Type B Antigen Negative For Type B SARS-CoV-2 Antigen (Rapid) PRESUMPTIVE NEGATIVE Labs Reviewed?: Yes EKG Comment: Heart rate 84 normal sinus rhythm, normal intervals no STEMI or STEMI equivalent ED Course ED Course Orders Procedure Category Date Status Time Vital Signs Per CPOE 08/22/24 Transmitted Routine 07:28 B-Type Natriuretic LAB 08/22/24 Complete Peptide 07:28 Chest 1vw RAD 08/22/24 Resulted 07:28 12 Lead Ekg Tracing- EKG 08/22/24 Complete Technical 07:28 Oxygen By Nc/Pulse Ox CPOE 08/22/24 Transmitted 07:28 Maintain Iv CPOE 08/22/24 Transmitted 07:28 Iv Insertion CPOE 08/22/24 Transmitted 07:28 Cardiac Monitoring CPOE 08/22/24 Transmitted 07:28 Pulse Oximetry With CPOE 08/22/24 Transmitted Vs And Prn 07:28 Cbc With Differential LAB 08/22/24 Complete 07:28 Activity: Br W/Brp CPOE 08/22/24 Transmitted With Assist 07:28 Troponin I High LAB 08/22/24 Complete Sensitivity 07:28 Urinalysis Profile LAB 08/22/24 Complete 07:28 Influenza Type A & B, LAB 08/22/24 Complete Rapid 07:31 Hepatic Function Panel LAB 08/22/24 Complete 07:31 Lipase LAB 08/22/24 Complete 07:31 Blood Cult ARACELIS 08/22/24 In Process 07:31 Lactic Acid LAB 08/22/24 Complete 07:31 Covid19 (Sars Antigen LAB 08/22/24 Complete Rapid) 07:31 Basic Metabolic Panel LAB 08/22/24 Complete 07:40 Creatine Kinase, Total LAB 08/22/24 Complete 07:40 Vital Signs Date Time Temp Pulse Resp B/P (MAP) Pulse Ox O2 Delivery O2 Flow Rate FiO2 08/22/24 07:25 86 20 131/50 96 Nasal Cannula 3.0 Medical Decision Making MDM MDM: Differential diagnosis: Rationale: Tests considered and ordered secondary to shared decision making include: Previous outside records reviewed: Old ER visits. Risk of complication and/or morbidity or mortality of patient management: None Medications-Per medication reconciliation Need for hospitalization: Patient does not meet criteria for hospitalization. Need for emergency major/minor surgery: No There are no social concerns with this patient. Prescription drug management Prescriptions will include symptomatic care Patient's prior external medical records from other ER visits were reviewed by me as indicated. Prior testing and results from previous visits were reviewed. Prior tests were taken into account with medical decision making and resource utilization, independent historian/historians were used to obtain complete medical history. I independently interpreted the test that were performed, results were reviewed by me and considered findings on radiology if ordered. Medical management and examination interpretation discussions were had by me with other qualified healthcare professionals as indicated for the patient's care. 78-year-old female with episode of shortness a breath and epigastric pain on arrival symptoms are all resolved in her shortness of breath is back to baseline with chronic COPD, patient was examined and worked up negative cardiac workup x-ray and blood work are all stable, patient reports she feels better now wants to go home no admission indicated at this time. DX & DISP Disposition: Discharge Departure Impression: Primary Impression: COPD exacerbation Additional Impression: Epigastric pain Condition: Stable Referrals: LEANNE MEDINA MD (PCP) GAL HERNANDEZ MD Aug 22, 2024 10:00
[2024-08-22 10:13] VITALS: BP 158/64; PULSE 80; RESP 24; TEMP 98.2; O2SAT 95
== END 2024-08-22 10:17 | disposition home or self-care (01) ==
LOC: EDH 07:25
DX: J44.1 Chronic obstructive pulmonary disease with (acute) exacerbation (principal); R10.13 Epigastric pain; E78.00 Pure hypercholesterolemia, unspecified; I10 Essential (primary) hypertension; Z20.822 Contact with and (suspected) exposure to COVID-19; Z79.899 Other long term (current) drug therapy; Z98.890 Other specified postprocedural states
CPT/HCPCS: 36415; 71045; 80048; 80076; 81001; 82550; 83605; 83690; 83880; 84484; 85025; 87040; 87426; 87804; 93005; 99285

== ENCOUNTER 2025-02-13 21:58 | Emergency (ER) | payer OTHER, MEDICAID ==
[~2025-02-13] VITALS: Ht 162.6 cm; Wt 59.0 kg
--- NOTE | 2025-02-13 23:06 | HMCIMG ---
EXAM: CR Left Tibia and Fibula, 2 views. CLINICAL HISTORY: Pain. COMPARISON: 02/05/2025. FINDINGS: No acute fracture or aggressive appearing osseous lesion. Mild osteopenia. Mild degenerative changes around the left knee and ankle joints. The soft tissues are unremarkable. IMPRESSION: No acute bony abnormality is evident. Degenerative changes. Compared to the prior study, there is no significant interval change. /[place]
--- NOTE | 2025-02-13 23:14 | ERN ---
ED Note History of Present Illness Stated Complaint: LEFT ANKLE PAIN, HX OF INJURY Chief Complaint: Ankle Problem Time Seen by MD: 22:03 Time Seen by Midlevel: 22:03 Dictation: The patient is an 79-year-old female with a history of hypertension who presents to the emergency department with complaints of left lower leg pain onset 02/05 after she accidentally got it suck in between two sofas. Patient denies any recent injury. She was instructed to follow up with her ortho doctor Mckeon and reports she called today and gave her an appointment until March. Allergies: Coded Allergies: No Known Allergies (Unverified Allergy, Unknown, 06/13/23) Home Meds Active Scripts Meloxicam (Meloxicam) 7.5 Mg Tablet, 1 TAB PO DAILY for 7 Days, #7 TAB 0 Refills Prov:[employer] [employer] 02/05/25 Reported Medications Atorvastatin Calcium (Atorvastatin Calcium) 20 Mg Tablet, 20 MG PO HS, TAB 08/02/24 Lisinopril (Lisinopril) 10 Mg Tablet, 10 MG PO DAILY, TAB 11/20/21 Meclizine HCl (Meclizine HCl) 25 Mg Tablet, 25 MG PO TIDP PRN for NAUSEA/VOMI TING, TAB 11/20/21 Albuterol Sulfate (Proair Hfa) 8.5 Gm Hfa.aer.ad, 8.5 GM IH Q4HPRN PRN for SHORTNESS OF BREATH 11/20/21 [Albuterol] No Conflict Check 03/30/19 [Ellipta] No Conflict Check, 100 MCG IH DAILY 03/30/19 Past Medical History Past Medical History: Hypertension, Other Additional Past Medical Hx: EMPHYSEMA Surgical History: Other Surgical History Other: RIGHT HIP, BACK PAIN AND LEF ELBOW SX Family History: Negative Social History: Negative History: Not Applicable RN Note Reviewed/Agreed w/PFSH: Yes Review of System Dictation Constitutional: Negative for fever,chills, and weight loss Eyes: Negative for injury, pain,redness, and discharge ENT: Negative for injury,pain or swelling Cardiovascular: Negative for chest pain, palpitations, and edema Respiratory: Negative for shortness of breath, cough, and wheezing, Abdomen/GI: Negative for abdominal pain, nausea, vomiting, diarrhea, and constipation Back: Negative for injury and pain : Negative for injury, bleeding and discharge MS/Extremity: Positive for left lower extremity pain Skin: Negative for rash, and discoloration Neuro: Negative for headache, weakness, numbness, tingling, and seizure Psych: Negative for suicide ideation, homicidal ideation, and hallucinations Initial Vital Sign VS Vital Signs Date Time Temp Pulse Resp B/P (MAP) Pulse Ox O2 Delivery O2 Flow Rate FiO2 02/13/25 21:59 98.1 80 16 174/81 94 Room Air 0 02/13/25 23:37 21 Physical Exam Dictation Vital Signs reviewed General Appearance: Alert, oriented x 3, no acute distress, well developed, nourished. Head and Face: non-traumatic. Eyes: PERRL, pink conjunctivas, eyelid no trauma, anterior chamber with arcus senilis. Ears: Pinnas intact and no signs of trauma or erythema ear canals clear and no discharge TM no erythema Nose: No discharge, no bleeding. Oropharynx: Mouth normal, tongue pink. pharynx clear,no erythema, tonsils no exudates, no abscesses noted, mucous membrane moist Neck: Supple, non-tender, no thyromegaly, no masses, no JVD, no bruits Breast:Deferred Chest:No tenderness, no crepitus, no paradoxical movement, no retractions Lungs:Clear, well-ventilated, symmetric, no rales, no wheezing, no rhonchi, no stridor, good breath sounds bilaterally Heart: Regular rate, regular rhythm, no murmur, no gallops Vascular: no peripheral edema, dorsalis pedis 3+ bilaterally Abdomen: Soft, positive bowel sounds, nondistended, no guarding, nontender, no rebound, no masses no hepatomegaly, no splenomegaly, no Duvall's sign, no hernias. Rectal: Deferred Genital: Deferred Neurological: Normal speech, motor function intact, sensory function intact Musculoskeletal: Neck nontender, full range of motion, back nontender, full range of motion, Extremities: nontender, full range of motion , mild swelling to the lower leg, mild bruising, no open wounds Skin: Color pink, dry, no turgor, no rash, no lacerations, no abrasions, no contusions. Lymphatic: Deferred Results (Laboratory/Radiology) Laboratory/Radiology Laboratory Tests Test 02/14/25 00:19 Whole Blood Glucose 254 MG/DL (70-110) H REASON: pain ORDERING PHYSICIAN: [employer] PROCEDURE: TIBFIB LT - TIBIA/FIBULA 2VWS LT EXAM: CR Left Tibia and Fibula, 2 views. CLINICAL HISTORY: Pain. COMPARISON: 02/05/2025. FINDINGS: No acute fracture or aggressive appearing osseous lesion. Mild osteopenia. Mild degenerative changes around the left knee and ankle joints. The soft tissues are unremarkable. IMPRESSION: No acute bony abnormality is evident. Degenerative changes. Compared to the prior study, there is no significant interval change. /[facility] Reviewed?: Yes ED Course ED Course Orders Procedure Category Date Status Time Tibia/Fibula 2vws Lt RAD 02/13/25 Resulted 22:21 Ketorolac PHA 02/13/25 Complete Tromethamine 30mg/Ml 22:30 Acetaminophen 500mg PHA 02/13/25 Complete Tab (Tylenol 500mg T 22:30 Current Medications Medications (Trade) Dose Ordered Sig/Sarah Route PRN Reason Start Time Stop Time Status Last Admin Dose Admin Acetaminophen (TYLenol 500MG TAB) 1,000 mg ONCE ONCE PO 02/13/25 22:30 02/13/25 22:32 DC 02/13/25 23:22 Ketorolac Tromethamine (toRADol) 30 mg ONCE ONCE IM 02/13/25 22:30 02/13/25 22:32 DC 02/13/25 23:30 Vital Signs Date Time Temp Pulse Resp B/P (MAP) Pulse Ox O2 Delivery O2 Flow Rate FiO2 02/14/25 00:23 98.2 70 18 176/80 98 Room Air* 0 21 02/13/25 23:37 73 18 176/66 98 Room Air* 0 21 02/13/25 21:59 98.1 80 16 174/81 94 Room Air 0 Medical Decision Making MDM The patient is an 79-year-old female with a history of hypertension who presents to the emergency department with complaints of left lower leg pain onset 02/05 after she accidentally got it suck in between two sofas. Patient denies any recent injury. She was instructed to follow up with her ortho doctor Mckeon and reports she called today and gave her an appointment until March. X-ray did not show any fractures. Patient reports improving in pain with the pain medication. Reports she is ready to go home. Patient continues neurovascularly intact, no acute distress. We will be discharged to follow up with PCP. patient slightly hypertensive but asymptomatic , reports shes pending her night dose. At this time patient wants to leave and states she will take her medications at home. Differential diagnosis: fracture, contusion, sprain Need for hospitalization: Patient does not meet criteria for hospitalization. There are no social concerns with this patient. DX & DISP Disposition: Discharge Departure Impression: Primary Impression: Left leg pain Condition: Stable Additional Instructions: Your xray showed no fractures. Please follow up with your PCP in 1-2 days. If anything worsens please return to ER. FOLLOW-UP WITH PRIMARY CARE PROVIDER IN 1 TO 2 DAYS. TAKE MEDICATIONS DIRECTED HERE IN THE EMERGENCY ROOM. OKAY TO CONTINUE HOME MEDICATIONS UNLESS OTHERWISE DISCUSSED DURING YOUR VISIT IN THE EMERGENCY ROOM TODAY. RETURN TO YOUR NEAREST EMERGENCY ROOM IF SYMPTOMS WORSEN OR IF THERE IS NO IMPROVEMENT. CALL 911 IF YOU NEED IMMEDIATE ASSISTANCE. TAKE TYLENOL [id number] NEEDED AND IF NO CONTRAINDICATIONS ARE PRESENT. INCREASE ORAL HYDRATION. A WOUND CULTURE OR URINE CULTURE WAS ORDERED HERE IN THE EMERGENCY ROOM DEPARTMENT PLEASE FOLLOW-UP WITH PRIMARY CARE PROVIDER AND ADVISE THEM TO GET REPEAT PORTS FROM OUR FACILITY. IF YOU HAD ANY LIZ WRAP/SPLINTS THAT WERE APPLIED HERE, PLEASE DO NOT REMOVE THEM UNTIL YOU SEE YOUR PRIMARY CARE OR SPECIALTY. Referrals: LEANNE MEDINA MD (PCP) Time of Disposition: 23:51 I have reviewed the case, and I agree with, Diagnosis and Plan BLADE [facility] Feb 13, 2025 23:14
[2025-02-14 00:23] VITALS: BP 176/80; PULSE 70; RESP 18; TEMP 98.2; O2SAT 98
== END 2025-02-14 00:34 | disposition home or self-care (01) ==
LOC: EDH 21:58
DX: S80.12XA Contusion of left lower leg, initial encounter (principal); I10 Essential (primary) hypertension; Z79.1 Long term (current) use of non-steroidal anti-inflammatories (NSAID); Z79.899 Other long term (current) drug therapy; W23.1XXA Caught, crushed, jammed, or pinched between stationary objects, initial encounter; Y93.89 Activity, other specified; Y92.89 Other specified places as the place of occurrence of the external cause; Y99.8 Other external cause status
CPT/HCPCS: 99283; 82948; 73590; 96372; J1885